=== PATIENT | female | born 1935 | race Caucasian/White ===

== ENCOUNTER → 2018-04-12 17:31 | Outpatient (CLI) | payer MEDICARE, OTHER, SELFPAY ==
--- NOTE | 2018-04-12 17:37 | DI.RAD.S_ITS ---
PROCEDURE: XR CHEST 2V INDICATIONS: Cough for 2 weeks TECHNIQUE: 2 views of the chest were acquired. COMPARISON: None. FINDINGS: Surgical changes and devices: None. Lungs and pleura: No pleural effusions or pneumothorax. Lungs are clear. Mediastinum: Mediastinal contours are normal. Heart size is normal. Bones and chest wall: No suspicious bony abnormalities. Soft tissues appear unremarkable. IMPRESSION: 1. No acute cardiopulmonary disease. Dictated by: Jalil Caicedo M.D. on 04/12/2018 at 17:59 Approved by: Jalil Caicedo M.D. on 04/12/2018 at 18:00
== END ==
PROVIDERS: Family Provider Family Medicine; PCP Family Medicine; Visit Provider Physician Assistant
DX: R05 Cough (principal)
CPT/HCPCS: 71046

== ENCOUNTER → 2018-11-10 07:53 | Outpatient (CLI) | payer MEDICARE, OTHER, SELFPAY ==
[2018-11-10 09:08] LABS: Hematocrit 41.2 % (36-46); Hemoglobin 13.5 g/dL (12.0-16.0); Mean Corpuscular HGB Conc 32.8 % (30-36); Mean Corpuscular Hemoglobin 29.5 PG (26-34); Mean Corpuscular Volume 89.9 fL (80-100); Platelet Count 280 X10^3/uL (150-400); Red Blood Cell Count 4.59 X10^6/uL (4.0-5.2); White Blood Cell Count 4.1 X10^3/uL (4.5-11.0)
[2018-11-10 09:25] LABS: Hemoglobin A1C% w Est Avg Glu 5.6 % (4.0-6.0)
[2018-11-10 09:35] LABS: Alanine Aminotransferase 26 IU/L (9-52); Albumin 4.2 g/dL (3.5-5.0); Albumin Globulin Ratio 1.5 (1.0-2.8); Alkaline Phosphatase 73 U/L (38-126); Aspartate Aminotransferase 22 IU/L (14-36); BUN Creatinine Ratio 17.5 (6-22); Bilirubin Total 0.3 mg/dL (0.2-1.3); Blood Urea Nitrogen 14 mg/dL (7-17); Calcium 9.4 mg/dL (8.4-10.2); Carbon Dioxide 27 mmol/L (22-32); Chloride 105 mmol/L (98-107); Cholesterol 283 mg/dL (140-199); Estimated Glomerular Filt Rate > 60.0 mL/min (>60); Globulin 2.8 g/dL (1.7-4.1); Glucose 96 mg/dL (80-110); HDL Cholesterol 61 mg/dL (40-60); HEMOLYSIS < 15 (0-50); LDL Cholesterol Calculated 193 mg/dL (<100); Potassium 4.3 mmol/L (3.4-5.1); Sodium 140 mmol/L (137-145); Triglycerides 143 mg/dL (35-150)
[2018-11-10 09:46] LABS: Vitamin D 25 Hydroxy (D3) 39.4 ng/mL (30.0-100.0)
[2018-11-10 10:34] LABS: Folate > 20.0 ng/mL (2.76-20.0); Vitamin B12 856 pg/mL (239-931)
== END ==
PROVIDERS: Visit Provider Nurse Practitioner Family
DX: E78.2 Mixed hyperlipidemia (principal); R53.82 Chronic fatigue, unspecified; E03.9 Hypothyroidism, unspecified; Z68.32 Body mass index [BMI] 32.0-32.9, adult
CPT/HCPCS: 36415; 80053; 80061; 82306; 82607; 82746; 83036; 84443; 85027

== ENCOUNTER → 2019-03-01 07:07 | Outpatient (CLI) | payer MEDICARE, OTHER, SELFPAY ==
[2019-03-01 08:30] LABS: Cholesterol 264 mg/dL (140-199); HDL Cholesterol 57 mg/dL (40-60); LDL Cholesterol Calculated 167 mg/dL (<100); Triglycerides 202 mg/dL (35-150)
== END ==
PROVIDERS: PCP Nurse Practitioner Family; Visit Provider Nurse Practitioner Family
DX: E78.2 Mixed hyperlipidemia (principal)
CPT/HCPCS: 36415; 80061

== ENCOUNTER → 2019-05-02 09:36 | Outpatient (CLI) | payer MEDICARE, OTHER, SELFPAY ==
--- NOTE | 2019-05-02 09:40 | DI.RAD.S_ITS ---
PROCEDURE: XR HAND LT MIN 3V INDICATIONS: PAIN IN THE THUMB JOINT TECHNIQUE: 3 views of the hand(s) acquired. COMPARISON: None. FINDINGS: Bones: No fractures or dislocations. Carpal bones are normally aligned. No suspicious bony lesions. Moderate first CMC and triscaphe joint osteoarthritis. Mild osteoarthritic degenerative changes noted in the first and fifth proximal and distal interphalangeal. Soft tissues: No suspicious soft tissue calcifications. IMPRESSION: 1. Osteoarthritis. 2. No fracture. No acute osseous lesion. If symptoms and/or clinical suspicion for pathology persists, further assessment with advanced imaging (e.g. CT, MRI or bone scan) may be helpful. Dictated by: Adriana Guzman MD, PhD on 05/02/2019 at 13:06 Approved by: Adriana Guzman MD, PhD on 05/02/2019 at 13:07
--- NOTE | 2019-05-02 09:40 | DI.RAD.S_ITS ---
PROCEDURE: XR KNEE LT 3V INDICATIONS: left knee with lump TECHNIQUE: 3 views of the knee were acquired. COMPARISON: None. FINDINGS: Bones: No fractures or dislocations. No suspicious bony lesions. Moderate medial compartment osteophytosis. Mild lateral compartment and patellofemoral compartment osteoarthritis. Soft tissues: No joint effusion. No suspicious soft tissue calcifications. Atherosclerotic calcifications noted. IMPRESSION: 1. Tricompartmental osteoarthritis. 2. No discrete soft tissue lesion identified that would correspond to clinically reported lump. Recommend CT or MRI for further evaluation if clinically indicated. Dictated by: Adriana Guzman MD, PhD on 05/02/2019 at 13:05 Approved by: Adriana Guzman MD, PhD on 05/02/2019 at 13:06
== END ==
PROVIDERS: PCP Nurse Practitioner Family; Visit Provider Nurse Practitioner Family
DX: M25.562 Pain in left knee (principal); M79.645 Pain in left finger(s); M17.12 Unilateral primary osteoarthritis, left knee; M18.12 Unilateral primary osteoarthritis of first carpometacarpal joint, left hand; M19.042 Primary osteoarthritis, left hand
CPT/HCPCS: 73130; 73562

== ENCOUNTER → 2019-09-25 18:08 | Outpatient (CLI) | payer MEDICARE, OTHER, SELFPAY ==
--- NOTE | 2019-09-25 18:11 | DI.MRI.S_ITS ---
PROCEDURE: MR KNEE LT WO CON INDICATIONS: UNILATERAL PRIMARY OSTEOARTHRITIS, LEFT KNEE TECHNIQUE: [facility] [employer] protocol was performed. Noncontrast sagittal PD fast spin echo and T2 fast spin echo with fat saturation, sagittal 3-D FLASH with fat saturation; coronal T1 spin echo and PD fast spin echo with fat saturation, and axial PD fast spin echo with fat saturation through the knee. COMPARISON: None. FINDINGS: Image quality: Excellent. Menisci: Complex macerated tear involving the medial meniscal body, with abnormal signal extending to the superior articular surface as well as the periphery. There is a ill-defined para meniscal cyst adjacent to the body and posterior horn (for example image 8 series 8). Exact measurements difficult due to irregular configuration. There is partial extrusion of the medial meniscus Lateral meniscus intact. Cruciate ligaments: Anterior cruciate ligament appears intact. Posterior cruciate ligament appears intact. Medial structures: There is medial bowing of the medial collateral ligament, with mild internal signal changes and no complete rupture. There is adjacent soft tissue edema. The appearance could reflect reactive changes to medial compartment pathology, versus low-grade sprain of the MCL. Pes anserinus tendons appear grossly unremarkable. Semimembranosus tendon appears intact. Lateral structures: The lateral collateral ligament demonstrates thickening and intrasubstance signal change in keeping with low grade sprain, statistically chronic, although technically age indeterminate. Biceps femoris tendon appears intact. Popliteus tendon grossly unremarkable. Iliotibial band appears intact. Anterior structures: Quadriceps tendon intact. Medial and lateral patellofemoral ligaments intact. There is mild patellar tendinopathy. Prepatellar and superficial infrapatellar subcutaneous edema/fluid. Bones and cartilage: No focal marrow contusion or discrete low signal fracture line. Within the medial compartment, near full-thickness diffuse femoral and tibial articular cartilage loss with subchondral marrow edema and cystic change. Within the lateral compartment, diffuse partial-thickness loss of the femoral and tibial articular cartilage with full-thickness fissuring involving the central tibial cartilage. Within the patellofemoral compartment, diffuse partial-thickness loss of the femoral trochlear and patellar articular cartilage Joint space: No definite pathologic or effusion. Gaines's cyst measuring 4-5 cm the cephalocaudad dimension. No specific evidence of intra-articular loose body. IMPRESSION: Macerated complex tear involving the medial meniscus with partial extrusion. Associated ill-defined para meniscal cyst adjacent to the body and posterior horn Severe degenerative joint disease, most pronounced in the medial compartment Mild patellar tendinopathy Gaines's cyst. Dictated by: Chandan Zaldivar M.D. on 09/26/2019 at 8:57 Approved by: Chandan Zaldivar M.D. on 09/26/2019 at 9:07
== END ==
PROVIDERS: PCP Nurse Practitioner Family; Referring Provider Orthopaedic Surgery; Visit Provider Orthopaedic Surgery
DX: M17.12 Unilateral primary osteoarthritis, left knee (principal); S83.231A Complex tear of medial meniscus, current injury, right knee, initial encounter; M71.21 Synovial cyst of popliteal space [Baker], right knee; M67.961 Unspecified disorder of synovium and tendon, right lower leg
CPT/HCPCS: 73721

== ENCOUNTER → 2019-11-07 08:05 | Outpatient (CLI) | payer MEDICARE, OTHER, SELFPAY ==
[2019-11-07 09:59] LABS: Cholesterol 264 mg/dL (140-199); HDL Cholesterol 58 mg/dL (40-60); LDL Cholesterol Calculated 179 mg/dL (<100); Triglycerides 134 mg/dL (35-150)
[2019-11-07 10:32] LABS: Thyroid Stimulating Hormone 2.72 uIU/mL (0.47-4.68)
== END ==
PROVIDERS: PCP Nurse Practitioner Family; Referring Provider Nurse Practitioner Family; Visit Provider Nurse Practitioner Family
DX: E78.2 Mixed hyperlipidemia (principal); E03.9 Hypothyroidism, unspecified
CPT/HCPCS: 36415; 80061; 84443

== ENCOUNTER → 2019-12-16 13:38 | Outpatient (CLI) | payer MEDICARE, OTHER, SELFPAY ==
--- NOTE | 2019-12-16 13:41 | DI.RAD.S_ITS ---
PROCEDURE: XR KNEE RT 3V INDICATIONS: right knee pain after injury TECHNIQUE: 3 views of the knee were acquired. COMPARISON: [facility], CR, XR KNEE LT 3V, 05/02/2019, 9:38. FINDINGS: Bones: No acute fractures or dislocations. There are tricompartmental degenerative changes of the right knee with joint space narrowing of the medial and lateral femorotibial compartments. No suspicious bony lesions. Soft tissues: No joint effusion. No suspicious soft tissue calcifications. IMPRESSION: Tricompartmental right knee osteoarthrosis. No acute osseous abnormalities. If there are persistent symptoms or clinical suspicion for pathology, then repeat radiographs or advanced imaging (CT, MRI or bone scan) should be considered for further evaluation. Dictated by: Lane Perez M.D. on 12/16/2019 at 15:37 Approved by: Lane Perez M.D. on 12/16/2019 at 15:38
== END ==
PROVIDERS: PCP Nurse Practitioner Family; Referring Provider Nurse Practitioner Family; Visit Provider Nurse Practitioner Family
DX: M25.561 Pain in right knee (principal); M17.11 Unilateral primary osteoarthritis, right knee; S89.91XA Unspecified injury of right lower leg, initial encounter; X58.XXXA Exposure to other specified factors, initial encounter
CPT/HCPCS: 73562

== ENCOUNTER → 2020-03-31 11:56 | Outpatient (CLI) | payer MEDICARE, OTHER, SELFPAY ==
[2020-03-31 13:42] LABS: Alanine Aminotransferase 22 IU/L (<35); Albumin Globulin Ratio 1.7 (1.0-2.8); Alkaline Phosphatase 85 U/L (38-126); Aspartate Aminotransferase 24 IU/L (14-36); BUN Creatinine Ratio 26.1 (6-22); Bilirubin Total 0.4 mg/dL (0.2-1.3); Blood Urea Nitrogen 18 mg/dL (7-17); Calcium 9.5 mg/dL (8.4-10.2); Carbon Dioxide 29 mmol/L (22-32); Chloride 104 mmol/L (98-107); Estimated Glomerular Filt Rate > 60.0 mL/min (>60); Globulin 2.4 g/dL (1.7-4.1); HEMOLYSIS < 15 (0-50); Potassium 4.4 mmol/L (3.4-5.1); Sodium 138 mmol/L (137-145); Total Protein 6.4 g/dL (6.3-8.2)
[2020-03-31 13:58] LABS: Glucose 92 mg/dL (80-110)
[2020-03-31 14:11] LABS: Thyroid Stimulating Hormone 1.06 uIU/mL (0.47-4.68)
== END ==
PROVIDERS: PCP Nurse Practitioner Family; Referring Provider Nurse Practitioner Family; Visit Provider Nurse Practitioner Family
DX: E03.9 Hypothyroidism, unspecified (principal); Z79.899 Other long term (current) drug therapy
CPT/HCPCS: 36415; 80053; 84443

== ENCOUNTER → 2020-04-20 09:10 | Outpatient (CLI) | payer MEDICARE, OTHER, SELFPAY ==
--- NOTE | 2020-04-20 09:24 | DI.ECHO.S_ITS ---
Echocardiogram Report + + :Name: CHAPIN GIBBS Study Date: 04/20/2020 Height: 64 in : :[employer] Weight: 190 lb : : Gender: Female BSA: 1.9 m2 : :: 1935 Age: 85 yrs BP: 132/93 mmHg: :Reason For Study: ABNORMAL EKG : : Performed By: Yanni Rivera : :Referring: FILOMENA SMITH : + + Interpretation Summary Normal left ventricle size with ejection fraction 60-65%. Mild mitral annular calcification. The aortic valve is mildly calcified. Mild aortic regurgitation. Procedure: A two-dimensional transthoracic echocardiogram with color flow and Doppler was performed. The study quality was technically adequate. There is no prior echocardiogram noted for this patient. The patient was in sinus bradycardia with heart rates between 44-58 bpm during the exam. Left Ventricle: The left ventricle is normal in size and wall thickness. The ejection fraction is estimated to be 60-65%. There are no focal wall motion abnormalities. Diastolic parameters suggest probable normal left ventricular diastolic function and normal filling pressures. Right Ventricle: The right ventricle is normal in size and function. Atria: Both atria are normal in size. There is no Doppler evidence for an interatrial shunt. Mitral Valve: The mitral valve is normal in structure and function. There is mild mitral annular calcification. There is trace mitral regurgitation. Aortic Valve: The aortic valve is trileaflet. The aortic valve is mildly calcified. There is no aortic valve stenosis. There is mild aortic regurgitation. Tricuspid Valve: The tricuspid valve is normal in structure and function. There is trace tricuspid regurgitation. Pulmonic Valve: The pulmonic valve leaflets are thin and pliable; valve motion is normal. There is mild to moderate pulmonic regurgitation. Great Vessels: The aortic root is normal size. The ascending aorta could not be visualized. The IVC is of normal diameter and collapses greater than 50% with a sniff. This suggests a low right atrial pressure of 3 mm Hg. Pericardium/ Pleura There is no pericardial effusion. There is no pleural effusion. MMode/2D Measurements & Calculations LVIDd: 3.9 cm LVOT diam: 2.3 cm LVIDs: 2.5 cm Ao root diam: 3.7 cm FS: 34.8 % IVSd: 0.89 cm LVPWd: 0.98 cm LV le. diameter/BSA (cm/m^2): 2.0 LV sys. diameter/BSA (cm/m^2): 1.3 LA A2 area: 16.9 cm2 RA long axis: 5.0 cm LA A4 area: 15.2 cm2 RA area: 16.3 cm2 LA length (vol): 4.8 cm RA vol: 45.5 ml LA vol: 45.4 ml RA : 23.8 ml/m2 LA vol index: 23.7 ml/m2 IVC diam: 1.3 cm RVD1 (basal): 3.0 cm TAPSE: 2.3 cm Doppler Measurements & Calculations Ao V2 max: 159.3 cm/sec LVOT Max Meek: 123.8 cm/sec Ao V2 mean: 103.8 cm/sec LV V1 max P.1 mmHg Ao max P.1 mmHg LV V1 VTI: 27.9 cm Ao mean P.1 mmHg HIEU(I,D): 3.2 cm2 Ao V2 VTI: 36.0 cm HIEU(V,D): 3.3 cm2 sev ratio: 0.78 HIEU indexed to BSA (cm^2/m^2): 1.7 MV E max meek: 64.7 cm/sec TR max meek: 214.9 cm/sec MV A max meek: 84.3 cm/sec TR max P.5 mmHg MV E/A: 0.77 PA V2 max: 84.3 cm/sec Med Peak E' Meek: 6.6 cm/sec PA V2 mean: 54.8 cm/sec E/E' med: 9.7 PA mean P.4 mmHg Lat Peak E' Meek: 7.5 cm/sec PA pr(Accel): 1.9 mmHg E/E' lat: 8.7 E/e' average: 9.2 MV dec time: 0.24 sec SV(LVOT): 116.8 ml Electronically signed by: Shelly Wallace on Reading Physician:04/20/2020 02:57 PM
== END ==
PROVIDERS: PCP Nurse Practitioner Family; Referring Provider Nurse Practitioner Family; Visit Provider Nurse Practitioner Family
DX: I35.1 Nonrheumatic aortic (valve) insufficiency (principal); R94.31 Abnormal electrocardiogram [ECG] [EKG]
CPT/HCPCS: 93306

== ENCOUNTER 2020-06-19 10:09 | Emergency (ER) | payer MEDICARE, OTHER, SELFPAY ==
[2020-06-19] VITALS (9 sets, daily range): BP systolic 158–176; BP diastolic 73–79; PULSE 43–60; RESP 14–25; TEMP 36.6; O2SAT 94–97; BMI 32.5
--- NOTE | 2020-06-19 11:02 | ED.NEUROSD ---
HPI - Neuro Symptoms/Deficit General Chief Complaint: Neuro Symptoms/Deficit Stated Complaint: disoriented/stomach issues Time Seen by Provider: 06/19/20 10:41 Source: patient Mode of arrival: Ambulatory Limitations: no limitations History of Present Illness HPI Narrative: Patient is an 85-year-old female who presents with difficulty concentrating since yesterday morning. She said that she has had this episodes in the past that usually last 3 days however when she has gone in to be evaluated they can not find anything wrong. She says she has a concentrate really hard in doing anything such as walking so that she does not fall down. She says she does not feel off balance dizzy or lightheaded. She does have some nausea she thinks it her difficulty concentrating may be associated with her abdomen. She had no fever chills or shortness of breath. No history of stroke Onset (ago): day(s) On Anticoagulants: No Related Data Home Medications Medication Instructions Recorded Confirmed MULTIVITAMIN (#POLYVITAMIN 0.5 ML) PO QDAY #0 05/21/12 03/31/20 [vitamin d] PO QDAY #0 05/21/12 03/31/20 aspirin 81 mg tablet,delayed 81 mg PO DAILY 04/12/18 03/31/20 release Stool Softener PO DAILY 11/09/18 03/31/20 ibuprofen 200 mg tablet 200 mg PO BID PRN tab 05/02/19 03/31/20 magnesium 250 mg tablet 500 mg PO DAILY tab 05/02/19 03/31/20 Al hyd-Mg tr-alg ac-sod bicarb 80 tab PO 03/31/20 03/31/20 mg-14.2 mg chewable tablet ascorbic yxiq-dhbdxjqj-php 1,000 mg PO 03/31/20 03/31/20 md-jrjprjjnllhg-flyrhuaa powder effervescent pack aspirin 500 mg-sod bicarb 1,985 each PO 03/31/20 03/31/20 mg-citric acid 1,000 mg efferv tablet Previous Rx's Medication Instructions Recorded levothyroxine 75 mcg tablet 75 mcg PO QDAY #90 tab 11/08/19 colestipol 1 gram tablet 1 gram PO DAILY #90 tab 03/31/20 pantoprazole 40 mg tablet,delayed 40 mg PO DAILY #14 tab 03/31/20 release Allergies Allergy/AdvReac Type Severity Reaction Status Date / Time Wfdsriq-Dwi-Fna Reductase AdvReac Severe Leg cramps Verified 06/19/20 10:25 Inhibitor [[id number]-[id number]-JZL REDUCTASE INHIBITOR] PNEUMONIA VACCINE Allergy Intermediate SWELLING Uncoded 03/31/20 11:05 AND REDNESS AND INJECTION SITE Review of Systems Review of Systems ROS Unobtainable: All systems reviewed & are unremarkable except as noted in HPI and below Constitutional Constitutional: Denies chills, Denies fever(s), Denies lethargy and Denies weakness Cardiovascular Cardiovascular: Denies chest pain, Denies irregular heart rhythm, Denies lightheadedness, Denies palpitations, Denies dyspnea, Denies dyspnea on exertion and Denies orthopnea Respiratory Respiratory: Denies cough, Denies dyspnea, Denies dyspnea on exertion and Denies wheezing Gastrointestinal Gastrointestinal: Reports abdominal pain, Denies change in bowel habits, Denies diarrhea, Reports nausea and Denies vomiting Musculoskeletal Musculoskeletal: Denies back pain, Denies myalgias and Denies muscle cramps Integumentary/Breasts Skin/Breast: Denies pruritus, Denies erythema, Denies rash and Denies wounds Neurologic Neurologic: Denies abnormal speech and Denies weakness Endocrine Endocrine: Denies palpitations Allergic/Immunologic Allergic/Immunologic: Denies wheezing Patient History Medical History Abnormal EKG (Acute) GERD (gastroesophageal reflux disease) (Resolved ~2011) Hip pain, right (Resolved Unknown) 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 Father Stroke Mother Heart attack Sister Stroke Sister No problems noted. Sister No problems noted. Sister No problems noted. Family/Other Cancer Social History Smoking Status: Never smoker second hand exposure: No alcohol intake: current (Wine or vodka. 1 about 4 times a week) substance use type: does not use Smoking Status: Never smoker alcohol intake frequency: 0-2 drinks per day Substance Use Type: does not use Exam Initial Vital Signs Initial Vital Signs: Vital Signs Temperature 97.9 F 06/19/20 10:25 Pulse Rate 52 L 06/19/20 10:25 Respiratory Rate 14 06/19/20 10:25 Blood Pressure 158/74 H 06/19/20 10:25 Pulse Oximetry 97 06/19/20 10:25 GENERAL: Alert pleasant well-appearing elderly female and in no acute distress. HEENT: Head atraumatic,EOMI, pupils reactive, face symmetric, moist mucous membranes CARDIOVASCULAR: Regular rate and rhythm without murmurs, rubs or gallops. RESPIRATORY: Breath sounds equal bilaterally, no wheezes rales or rhonchi. ABDOMEN: Soft, nontender. Normoactive bowel sounds all 4 quadrants. No guarding or rebound. EXTREMITIES: Normal range of motion, no clubbing or edema. Neurovascularly intact NEUROLOGICAL: Alert and oriented x4.Normal gait and speech. Cranial nerves II through XII grossly intact. Good zeiiev-cx-obdk, good jixd-js-uiso, strength equal bilaterally, no dysarthria or aphasia, sensation in tact to soft touch bilaterally, no visual changes, no facial droop SKIN: Warm, dry, no laceration, no petechiae, no rashes or lesions. Scores NIH Stroke Scale Level of Conciousness: Alert, keenly responsive Ask month/age: Answers both questions correctly. Open/close eyes, close hand: Performs both tasks correctly Best gaze horizontal: Normal Visual pacheco: No visual loss Facial palsy: Normal symetrical movement Left arm drift: No drift for full 10 sec Right arm drift: No drift for full 10 sec Left leg drift: No drift for full 5 sec Right leg drift: No drift for full 5 sec Limb ataxia: Absent Sensory on face/arms/legs: Normal, no sensory loss Best language: No aphasia, normal Dysarthria: Normal Extinction or inattention: No abnormality Total NIH Stroke scale score: 0 Course Orders Ordered: ED Orders 06/19/20 11:28 CT head/brain wo con Stat 10/30/20 11:45 Complete Blood Count AUTO DIFF Stat Comprehensive Metabolic Panel Stat Troponin & CK Cardiac Panel Stat Discontinued Medications Sodium Chloride (Normal Saline 0.9%) 1,000 mls @ 150 mls/hr IV CONT JOSETTE Last Admin: 06/19/20 11:50 Dose: 150 mls/hr Documented by: CARTER Vital Signs Vital signs: Vital Signs - 8 hr 06/19/20 10:25 06/19/20 10:44 06/19/20 11:00 Temperature 97.9 F Pulse Rate 52 L 46 L 49 L Respiratory Rate 14 20 17 Blood Pressure 158/74 H Pulse Oximetry 97 95 94 06/19/20 11:29 06/19/20 11:30 06/19/20 12:00 Temperature Pulse Rate 47 L 45 L 45 L Respiratory Rate 14 17 25 H Blood Pressure 176/79 H 167/77 H 170/74 H Pulse Oximetry 96 97 95 06/19/20 12:30 06/19/20 13:06 06/19/20 13:30 Temperature Pulse Rate 43 L 60 50 L Respiratory Rate 20 17 25 H Blood Pressure 159/73 H Pulse Oximetry 95 97 MDM - Neuro Symptoms/Deficit Lab Data Attestation: I reviewed the patient's lab results. Result diagrams: 06/19/20 11:45 06/19/20 11:45 Labs: Lab Results 06/19/20 06/19/20 Range/Units 11:45 11:45 WBC 6.0 (4.5-11.0) X10^3/uL RBC 4.43 (4.0-5.2) X10^6/uL Hgb 13.2 (12.0-16.0) g/dL Hct 39.5 (36-46) % MCV 89.1 (80-100) fL MCH 29.9 (26-34) PG MCHC 33.5 (30-36) % RDW 14.3 (11.6-14.8) % Plt Count 265 (150-400) X10^3/uL Neut % (Auto) 72.0 (50-75) % Lymph % (Auto) 19.8 L (25-40) % [place] % (Auto) 5.9 (3-14) % Eos % (Auto) 1.7 L (2-4) % Baso % (Auto) 0.6 (0-2) % Neut # (Auto) 4300 (5059-6382) /uL Lymph # (Auto) 1200 (1528-4454) /uL [place] # (Auto) 400 (0-900) /uL Eos # (Auto) 100 (0-450) /uL Baso # (Auto) 0 (0-100) /uL Sodium 139 (137-145) mmol/L Potassium 4.0 (3.4-5.1) mmol/L Chloride 107 (98-107) mmol/L Carbon Dioxide 28 (22-32) mmol/L BUN 16 (7-17) mg/dL Creatinine 0.66 (0.52-1.04) mg/dL Estimated GFR > 60.0 (>60) mL/min BUN/Creatinine Ratio 24.2 H (6-22) Glucose 106 (80-110) mg/dL Calcium 9.3 (8.4-10.2) mg/dL Total Bilirubin 0.5 (0.2-1.3) mg/dL AST 23 (14-36) IU/L ALT 19 (<35) IU/L Alkaline Phosphatase 72 (38-126) U/L Total Creatine Kinase 39 (30-135) U/L CK-MB (CK-2) TNP CK-MB (CK-2) Rel Index TNP Troponin I < 0.012 (0.01-0.034) ng/mL Total Protein 6.9 (6.3-8.2) g/dL Albumin 4.0 (3.5-5.0) g/dL Globulin 2.9 (1.7-4.1) g/dL Albumin/Globulin Ratio 1.4 (1.0-2.8) Urine Dip Bedside Urine Glucose Negative Bedside Urine Bilirubin - Negative Bedside Urine Ketone - Negative Urine Specific Comfort 1.020 Bedside Urine Occult Blood - Negative Bedside Urine pH 6.5 Bedside Urine Protein - Negative Bedside Urine Urobilinogen - Negative Bedside Urine Nitrite - Negative Bedside Urine Leukocytes - Negative Esterase Imaging Data CT scan - head: Radiologist's Impression: PROCEDURE: CT HEAD/BRAIN WO CON INDICATIONS: difficulty concentrating TECHNIQUE: Noncontrast 4.5 mm thick angled axial sections acquired from the foramen magnum to the vertex, with coronal and sagittal reformats. For radiation dose reduction, the following was used: automated exposure control, adjustment of mA and/or kV according to patient size. COMPARISON: None. FINDINGS: Image quality: Excellent. CSF spaces: Basal cisterns are patent. No extra-axial fluid collections. The ventricles are symmetric in size and shape. Brain: No intracranial bleeds or masses. There is cerebral volume loss for age, with resultant ventricular and sulcal prominence. There are periventricular and deep white matter chronic small vessel ischemic changes. There is intracranial internal carotid artery atherosclerosis. Skull and face: Calvarium and visualized facial bones appear intact, without suspicious lesions. Sinuses: Visualized sinuses and mastoids are clear. IMPRESSION: No acute intracranial disease process. Dictated by: Adriana Guzman MD, PhD on 06/19/2020 at 11:31 ECG Data Attestation: I personally reviewed and interpreted this ECG as follows: Prior ECG tracings: available for review Interpretation: Normal sinus rhythm rate 47 p.r. interval 184 QRS [address] changes MDM Narrative Medical decision making narrative: Patient has no focal deficits no sign of infection. At this time I see no indication for admission criteria. Symptoms have been ongoing for more than 24 hours. Recommend she go home and rest and return if needed. Discharge Plan Departure Patient Disposition: Home Clinical Impression: Weakness Discharge Date/Time: 06/19/20 13:41 Instructions: DI for Muscle Weakness Activity Restrictions/Additional Instructions: *You have been diagnosed with at this time no real cause of symptoms is identified *What to do: Recommend resting and monitoring symptoms *Continue to take medications as directed *Follow up with your primary care provider in 2-3 days *Return to ER if you should have increased weakness, difficulty speaking, visual changes or any new, worsening or concerning symptoms Prescriptions: No Action aspirin [Adult Low Dose Aspirin] 81 mg tablet,delayed release (DR/EC) 81 mg PO DAILY RF: 0 Stool Softener PO DAILY RF: 0 MULTIVITAMIN (#POLYVITAMIN 0.5 ML) PO QDAY Qty: 0 RF: 0 [vitamin d] PO QDAY Qty: 0 RF: 0 levothyroxine [Synthroid] 75 mcg tablet 75 mcg PO QDAY Qty: 90 RF: 3 magnesium 250 mg tablet 500 mg PO DAILY RF: 0 ibuprofen 200 mg tablet 200 mg PO BID PRNRF: 0 Emergen-C 1,000 mg powder effervescent in packet PO RF: 0 Millie-Ford Extra Strength 500-1,985-1,000 mg tablet, effervescent PO RF: 0 Gaviscon 80-14.2 mg tablet,chewable PO RF: 0 colestipol [Colestid] 1 gram tablet 1 gram PO DAILY Qty: 90 RF: 1 pantoprazole [Protonix] 40 mg tablet,delayed release (DR/EC) 40 mg PO DAILY Qty: 14 RF: 0 Referrals: Al Johnson ARNP [Primary Care Provider] -
--- NOTE | 2020-06-19 11:28 | DI.CT.S_ITS ---
PROCEDURE: CT HEAD/BRAIN WO CON INDICATIONS: difficulty concentrating TECHNIQUE: Noncontrast 4.5 mm thick angled axial sections acquired from the foramen magnum to the vertex, with coronal and sagittal reformats. For radiation dose reduction, the following was used: automated exposure control, adjustment of mA and/or kV according to patient size. COMPARISON: None. FINDINGS: Image quality: Excellent. CSF spaces: Basal cisterns are patent. No extra-axial fluid collections. The ventricles are symmetric in size and shape. Brain: No intracranial bleeds or masses. There is cerebral volume loss for age, with resultant ventricular and sulcal prominence. There are periventricular and deep white matter chronic small vessel ischemic changes. There is intracranial internal carotid artery atherosclerosis. Skull and face: Calvarium and visualized facial bones appear intact, without suspicious lesions. Sinuses: Visualized sinuses and mastoids are clear. IMPRESSION: No acute intracranial disease process. Dictated by: Adriana Guzman MD, PhD on 06/19/2020 at 11:31 Approved by: Adriana Guzman MD, PhD on 06/19/2020 at 11:33
[2020-06-19] MEDS: SODIUM CHLORIDE 0.9% 1,000 ML 150 ML IV (11:50)
[2020-06-19 11:51] LABS: Add Manual Diff / Slide Review NO; Basophils Absolute Auto 0 /uL (0-100); Basophils Percent Auto 0.6 % (0-2); Eosinophils Absolute Auto 100 /uL (0-450); Eosinophils Percent Auto 1.7 % (2-4); Hematocrit 39.5 % (36-46); Hemoglobin 13.2 g/dL (12.0-16.0); Lymphocytes Absolute Auto 1200 /uL (1100-4500); Lymphocytes Percent Auto 19.8 % (25-40); Mean Corpuscular HGB Conc 33.5 % (30-36); Mean Corpuscular Hemoglobin 29.9 PG (26-34); Mean Corpuscular Volume 89.1 fL (80-100); Monocytes Absolute Auto 400 /uL (0-900); Monocytes Percent Auto 5.9 % (3-14); Neutrophils Absolute Auto 4300 /uL (1500-7000); Platelet Count 265 X10^3/uL (150-400); Red Blood Cell Count 4.43 X10^6/uL (4.0-5.2); Red Cell Distribution Width 14.3 % (11.6-14.8)
[2020-06-19 12:04] LABS: Alanine Aminotransferase 19 IU/L (<35); Albumin Globulin Ratio 1.4 (1.0-2.8); Alkaline Phosphatase 72 U/L (38-126); Aspartate Aminotransferase 23 IU/L (14-36); BUN Creatinine Ratio 24.2 (6-22); Bilirubin Total 0.5 mg/dL (0.2-1.3); Blood Urea Nitrogen 16 mg/dL (7-17); Calcium 9.3 mg/dL (8.4-10.2); Carbon Dioxide 28 mmol/L (22-32); Chloride 107 mmol/L (98-107); Creatine Kinase 39 U/L (30-135); Estimated Glomerular Filt Rate > 60.0 mL/min (>60); Globulin 2.9 g/dL (1.7-4.1); Glucose 106 mg/dL (80-110); HEMOLYSIS < 15 (0-50); Sodium 139 mmol/L (137-145); Total Protein 6.9 g/dL (6.3-8.2)
[2020-06-19 12:14] LABS: Troponin I < 0.012 ng/mL (0.01-0.034)
--- NOTE | 2020-07-19 13:05 | PC.NURSE ---
LATE ENTRY: NS INFUSING AT TIME OF DC WITH STOP TIME OF 1340
== END 2020-06-19 13:41 | disposition home or self-care (01) ==
PROVIDERS: Emergency Provider Emergency Medicine; PCP Nurse Practitioner Family
DX: R53.1 Weakness (principal); R41.0 Disorientation, unspecified; R10.9 Unspecified abdominal pain; R11.0 Nausea
CPT/HCPCS: 36415; 70450; 80053; 81003; 82550; 84484; 85025; 93005; 93010; 96360; 96361; 99284

== ENCOUNTER → 2020-07-14 12:53 | Outpatient (CLI) | payer MEDICARE, OTHER, SELFPAY ==
[2020-07-14 13:07] LABS: Bacteria Urine None Seen; RBC Urine None Seen (0-5/HPF); WBC Urine None Seen (0-5/HPF)
[2020-07-14 13:30] LABS: Appearance Urine UA CLEAR; Bilirubin Urine UA NEGATIVE (NEGATIVE); Color Urine UA YELLOW; Glucose Urine UA NEGATIVE (Negative); Ketones Urine UA NEGATIVE (NEGATIVE); Leukocyte Esterase Urine UA NEGATIVE (NEGATIVE); Nitrite Urine UA NEGATIVE (Negative); Occult Blood Urine UA NEGATIVE (Negative); Protein Urine UA NEGATIVE (Negative); Urobilinogen Urine UA 0.2 E.U./dL (0.2)
[2020-07-14 13:36] LABS: Add Manual Diff / Slide Review NO; Basophils Absolute Auto 100 /uL (0-100); Basophils Percent Auto 0.7 % (0-2); Eosinophils Absolute Auto 200 /uL (0-450); Eosinophils Percent Auto 1.9 % (2-4); Hematocrit 39.6 % (36-46); Hemoglobin 13.1 g/dL (12.0-16.0); Lymphocytes Absolute Auto 1500 /uL (1100-4500); Lymphocytes Percent Auto 19.5 % (25-40); Mean Corpuscular HGB Conc 33.1 % (30-36); Mean Corpuscular Hemoglobin 29.6 PG (26-34); Mean Corpuscular Volume 89.4 fL (80-100); Monocytes Absolute Auto 600 /uL (0-900); Monocytes Percent Auto 7.3 % (3-14); Neutrophils Absolute Auto 5600 /uL (1500-7000); Neutrophils Percent Auto 70.6 % (50-75); Platelet Count 288 X10^3/uL (150-400); Red Blood Cell Count 4.43 X10^6/uL (4.0-5.2); White Blood Cell Count 7.9 X10^3/uL (4.5-11.0)
[2020-07-14 13:47] LABS: BUN Creatinine Ratio 26.5 (6-22); Blood Urea Nitrogen 18 mg/dL (7-17); Calcium 9.4 mg/dL (8.4-10.2); Carbon Dioxide 29 mmol/L (22-32); Chloride 105 mmol/L (98-107); Estimated Glomerular Filt Rate > 60.0 mL/min (>60); Glucose 100 mg/dL (80-110); HEMOLYSIS < 15 (0-50); Potassium 4.3 mmol/L (3.4-5.1); Sodium 138 mmol/L (137-145)
[2020-07-14 13:54] LABS: Culture Indicated Urine Cult Not Indicated; Urine Comments Microscopic Normal
== END ==
PROVIDERS: PCP Nurse Practitioner Family; Referring Provider Orthopaedic Surgery; Visit Provider Orthopaedic Surgery
DX: Z01.818 Encounter for other preprocedural examination (principal); R73.9 Hyperglycemia, unspecified; N39.0 Urinary tract infection, site not specified; Z01.812 Encounter for preprocedural laboratory examination
CPT/HCPCS: 36415; 80048; 81001; 83036; 85025; 93005; 93010

== ENCOUNTER → 2020-10-30 16:53 | Outpatient (CLI) | payer MEDICARE, OTHER, SELFPAY ==
[2020-10-30] MEDS: COVID-19 VACC, Ad26(JANSSEN)/PF 0.5 ML IM (17:09)
== END ==
PROVIDERS: PCP Nurse Practitioner Family; Visit Provider Internal Medicine
DX: Z23 Encounter for immunization (principal)
CPT/HCPCS: 0031A; 91303

== ENCOUNTER → 2020-11-27 07:43 | Outpatient (CLI) | payer MEDICARE, OTHER, SELFPAY ==
[2020-11-27 08:23] LABS: Alanine Aminotransferase 20 IU/L (<35); Albumin 4.3 g/dL (3.5-5.0); Albumin Globulin Ratio 1.5 (1.0-2.8); Alkaline Phosphatase 87 U/L (38-126); Aspartate Aminotransferase 27 IU/L (14-36); BUN Creatinine Ratio 24.7 (6-22); Bilirubin Total 0.3 mg/dL (0.2-1.3); Blood Urea Nitrogen 20 mg/dL (7-17); Calcium 9.7 mg/dL (8.4-10.2); Carbon Dioxide 27 mmol/L (22-32); Chloride 106 mmol/L (98-107); Estimated Glomerular Filt Rate > 60.0 mL/min (>60); Globulin 2.8 g/dL (1.7-4.1); Glucose 103 mg/dL (80-110); HEMOLYSIS < 15 (0-50); Potassium 4.3 mmol/L (3.4-5.1); Sodium 138 mmol/L (137-145); Total Protein 7.1 g/dL (6.3-8.2)
[2020-11-27 08:36] LABS: Free T4, Direct Thyroxine 0.99 ng/dL (0.78-2.19)
[2020-11-27 08:50] LABS: Thyroid Stimulating Hormone 2.89 uIU/mL (0.47-4.68)
== END ==
PROVIDERS: PCP Nurse Practitioner Family; Referring Provider Nurse Practitioner Family; Visit Provider Nurse Practitioner Family
DX: E03.9 Hypothyroidism, unspecified (principal)
CPT/HCPCS: 36415; 80053; 84439; 84443

== ENCOUNTER → 2021-01-04 08:35 | Outpatient (CLI) | payer MEDICARE, OTHER, SELFPAY ==
[2021-01-04 10:02] LABS: Cholesterol 280 mg/dL (140-199); HDL Cholesterol 64 mg/dL (40-60); LDL Cholesterol Calculated 181 mg/dL (<100); Triglycerides 175 mg/dL (35-150)
== END ==
PROVIDERS: PCP Nurse Practitioner Family; Referring Provider Nurse Practitioner Family; Visit Provider Nurse Practitioner Family
DX: E78.2 Mixed hyperlipidemia (principal)
CPT/HCPCS: 36415; 80061

== ENCOUNTER 2021-01-25 13:56 | Outpatient (RCR) | payer MEDICARE, OTHER, SELFPAY ==
--- NOTE | 2021-01-25 16:26 | PT.OIE ---
Current Diagnoses Stiffness of left hip, not elsewhere classified (01/25/21) Muscle weakness (generalized) (01/25/21) Stress incontinence (female) (male) (01/25/21) Mixed incontinence (01/25/21) Past Medical History (Last Updated 07/09/20 @ 17:29 by MARILY Cano) Abnormal EKG Constipation GERD (gastroesophageal reflux disease) (~2011) Hemorrhoids Hip pain, right (Unknown) Hx of malignant neoplasm of parotid gland (Unknown) Hyperlipemia (Unknown) Hypothyroidism (Unknown) Left medial knee pain (11/2018) Osteoarthritis (Unknown) Stress incontinence Vertigo (Unknown) Past Surgical History (Last Reviewed 06/19/20 @ 11:04 by Loly Srinivasan DO) History of salpingoophorectomy (Unknown) Hx of appendectomy (Unknown) Hx of cholecystectomy (Unknown) Hx of hysterectomy (Unknown) 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) Visit Care Team Role Provider Type MARILY Cano Attending Provider Advanced Auction Assistant Primary Care Provider Referring Provider Specialty: [facility] Address: [address] [place] [address] Email: [email or web address] Physical Therapy Initial Evaluation PT-OP-A Visit Information Start: 01/25/21 12:43 Freq: Status: Active Protocol: Document 01/25/21 14:19 LRN (Rec: 01/25/21 15:29 LRN [id number]) Out-Patient Physical Therapy Visit Information Visit Information Visit Type Initial Evaluation Visit Start Time 14:19 Visit Stop Time 15:21 Total Visit Minutes 62 Visit Number 1 Evaluation Information Evaluation Date 01/25/21 Precautions Precautions Partial L knee replacement 2019. R hip replacement 6 yrs ago. Hypothyroid, uncontrolled high blood pressure, trying to be managed by diet. PT-OP-B Current Condition Start: 01/25/21 12:43 Freq: Status: Active Protocol: Document 01/25/21 14:19 LRN (Rec: 01/25/21 15:29 LRN [id number]) Current Condition History of Current Condition Onset Date 14 yrs ago, worsened 5 yrs ago . Current Complaints Urinary leakage with urge, and frequency. History of Current Condition Urinary leakage, wears pads all the time. Changes pads 3x /day, yesterday, normal changes 2/24 hrs. Urinates every 15' in the morning. Has hemorrhoids; therefore uses carefree long heavy duty pads. Prior Treatments and Tests None Developmental History Developmental History Uterus, tubes & ovaries removed at age 39. Treatment Goals Patient/Caregiver Goals Pt goals is to not have to urinate every 20 minutes when walking for exercise. Prior Functional Status Baseline Function- ADL's Independent Baseline Function- Mobility Independent Baseline Function- Gait Occasionally uses walking stick with rough terrain, walks by self. Baseline Function- Recreation/Hobbies Swims 3x/week and walk on days not in the pool. Baseline Function- Other Urinate every 30 minutes. Current Functional Impairments (Reported) Functional Limitations- ADL's Less urinary control. Not able to stop leakage, and increased frequency of urination. Functional Limitations- Mobility/Gait Urinates ~ every 20' with walks. Personal Factors Other Personal Factors That May Effect Lives alone, daughter in [employer] [place]. History of constipation that she is working on changing, uncontrolled HBP. PT-OP-C Subjective Start: 01/25/21 12:43 Freq: Status: Active Protocol: Document 01/25/21 14:19 LRN (Rec: 01/25/21 15:29 LRN [id number]) Patient Questionnaires Pelvic Pain and Urgency/Frequency Patient Symptom Scale Pelvic Pain Score 12 PT-OP-I Pelvic Floor Start: 01/25/21 12:43 Freq: Status: Active Protocol: Document 01/25/21 14:19 LRN (Rec: 01/25/21 15:29 LRN [id number]) Pelvic Floor Assessment Urine Other Urinary Symptoms Increased frequency Leakage Size Small Leakage Cause Urge Leaks Per Day 2-3 Voiding Frequency every 20' in AM, in afternoon every 45-60' Nocturia 3-7 Pads Used In 24 Hours 2 Bowel Bowel Symptoms Constipation Other Bowel Symptoms Used to have constipation Bowel Movement Frequency 1/day [place] Stool Chart Comments [place] Stools between 3-4 Pelvic Clock Pelvic Clock 12-3 Tightness Pelvic Clock 3-6 Tightness Pelvic Clock 6-9 Tightness Pelvic Clock 9-12 Tightness Pelvic Clock Other Tightness of vaginal opening. Pt with very small vaginal opening. Prolapse Rectocele Grade 1 Prolapse Comments Palpable bulging of rectum into vaginal canal in supine. Perineal Descent Resting Present Bearing Present Contraction Ability Voluntary Contraction Moderate Voluntary Relaxation Weak Manual Muscle Testing Left 3 Manual Muscle Testing Right 3 Manual Muscle Testing Anterior 1 Manual Muscle Testing Posterior 3 Muscle Endurance (Seconds) 2 Number of Quick Contractions In 10 10 Seconds PT-OP-J Posture/Palpation/Skin Start: 01/25/21 12:43 Freq: Status: Active Protocol: Document 01/25/21 14:19 LRN (Rec: 01/25/21 15:29 LRN [id number]) Posture Evaluation Position Standing Head/C-Spine Posture Forward Head L-Spine Posture Increased Lordosis Shoulder Posture (R) Elevated Scapula Posture (R) Elevated Pelvis Posture Anteriorly Tilted,(L) PSIS Posterior Weight Distribution Balanced Hip Posture (L) Abducted,(R) Abducted Foot Arch (L) No Arch,(R) No Arch Comments Posture Comments Dowagers hump, L shoulder/ scpaular is low, head tilt right, R PSIS is forward, increased lordosis & anterior tilt of pelvis. Wide stance PT-OP-K Range of Motion Start: 01/25/21 12:43 Freq: Status: Active Protocol: Document 01/25/21 14:19 LRN (Rec: 01/25/21 15:29 LRN [id number]) Lumbar Spine Range of Motion Lumbar Spine Active Degrees Testing Position Standing Flexion 105 Extension 15 Rotation Left 20 Rotation Right 20 Lateral Flexion Left 15 Lateral Flexion Right 15 Comments 105/80 15/5 Hip Goniometric Range of Motion Hip Right Passive Hip ROM WFL No Testing Position Supine Flexion w/Knee Flexed 90 Straight Leg Raise 95 Internal Rotation 30 External Rotation 50 Left Passive Hip ROM WFL Yes Testing Position Supine Flexion w/Knee Flexed 105 Straight Leg Raise 105 Internal Rotation 10 External Rotation 50 PT-OP-M Strength Start: 01/25/21 12:43 Freq: Status: Active Protocol: Document 01/25/21 14:19 LRN (Rec: 01/25/21 15:29 LRN [id number]) Trunk Strength Trunk Manual Muscle Testing Core Stabilization Decreased core stability with R hip resisted flexion and hip AB Hip Strength Hip Manual Muscle Testing Right Flexion (L2) 5 Normal Extension (S1) 5 Normal Abduction 5 Normal Adduction 5 Normal External Rotation 3 Fair Internal Rotation 5 Normal Left Flexion (L2) 5 Normal Extension (S1) 5 Normal Abduction 5 Normal Adduction 5 Normal External Rotation 4 Good Internal Rotation 5 Normal Comments Decreased lift for extension PT-OP-Q Treatments Start: 01/25/21 12:43 Freq: Status: Active Protocol: Document 01/25/21 14:19 LRN (Rec: 01/25/21 15:29 LRN [id number]) Therapeutic Exercises Sitting Exercises Deep Breathing Sitting Exercise Name Deep Breathing Reps/Minutes 2' Self-Care/Home Management Treatment Education Other Education Discussed carefully proceeding of evaluation due to pt's apprehension of having a PF evaluation. Discussed at length results of evaluation, goals and plan of care; pt agreeable. Pt educated in use of Bladder Diary and I/S in tracking for 1 week. Discussed use of 2 different diaries for tracking of bladder. Activities Self-Care/Home Management Activities Issued & reviewed HEP: Deep Breathing. Pt I/S to do in sitting and supine. PT-OP-T Assessment and Plan Start: 01/25/21 12:43 Freq: Status: Active Protocol: Document 01/25/21 14:19 LRN (Rec: 01/25/21 15:29 LRN [id number]) Physical Therapy Assessment Rehab Potential Rehabilitation Potential Good Evaluation Complexity Number of Personal Factors/Comorbidities 3 or More Number of Body Systems Impaired 4 or More Clinical Presentation at Evaluation Evolving Impairments Impairments Activity Tolerance,ROM, Strength,Transfers Other Impairments Urinary leakage. Occasional constipation. Goals Four Impairment Decreased L hip mobility (IR 10 deg's L, 30 deg's R; ER 50 deg's miriam) Short Term Goal (STG) Pt will be independent in home program of hip ER/IR stretches. STG Duration 02/08/21 [place] Goal (LTG) Pt will demonstrate improved L hip IR and bilateral hip ER mobility (note: R JARRED hx). LTG Duration 03/26/21 Three Impairment Increased daily frequency of urination (every 20') Short Term Goal (STG) Improve time between voids to every 45 minutes - 1 hour. STG Duration 02/19/21 [place] Goal (LTG) Improve time between voids to every 2 hours. LTG Duration 03/26/21 Two Impairment Urinary leakage in the presence of a strong urge Short Term Goal (STG) Pt will be educated in urinary delay technique. STG Duration 02/01/21 [place] Goal (LTG) Improve PF endurance to 10 sec hold in supine to help with bladder stability and to decrease urinary leakage. LTG Duration 03/26/21 One Impairment Pt lacks an independent self care HEP. Short Term Goal (STG) Pt will be able to perform a proper deep breathing. STG Duration 02/08/21 [place] Goal (LTG) Pt will be independent in a self care program and self care HEP. LTG Duration 03/26/21 Assessment Summary Assessment Pt presents with urge incontinence, due partially to anterior PF tightness (also associated to history of constipation) and anterior PF weakness (no visible clitoral nod present). She has a palpable rectocele with bulging due to stool in rectum . Her vaginal opening is small and tender; therefore I was unable to visualize for cystocele. The pt's vaginal tissues are somewhat dry and would benefit from a cream to improve tissue health. She is apprehensive about doing PF physical therapy; therefore progress may be slow due to more pt directed self care and less manual therapy. The pt has asymmetry in hip mobility, postural deviations, and some weakness of her hip rotators. She has fairly good core stability but tends to breath hold; therefore much education is needed to change her exercise and mobility habits of breath holding. The pt will benefit from skilled physical therapy to achieve the above stated goals. Physical Therapy Plan Frequency and Duration Frequency of Treatment 1x/Week Plan of Care Start Date 01/25/21 Plan of Care End Date 03/26/21 Therapeutic Interventions Therapeutic Interventions Home Exercise Program,Manual Therapy,Neuromuscular Re- education,Patient/Caregiver Education,Self-Care/Home Management,Soft Tissue Mobilization,Therapeutic Activities,Therapeutic Exercises Modalities Cold Pack/Ice Massage,Hot Packs Next Visit Focus/Plan Next Note Type Treatment Note Next Visit Plan Review deep breathing ex and discuss breathing with transfers and exercise. Educate pt in urge deference technique. Review bladder diary and discuss/educate pt in fluid intake/output norms, voiding frequency norms, and progress her HEP to hip ROM (L >R hip IR)/strengthening (hip ER, core), and trunk rotation.
--- NOTE | 2021-01-25 16:28 | PT.OIE ---
Current Diagnoses Stiffness of left hip, not elsewhere classified (01/25/21) Muscle weakness (generalized) (01/25/21) Stress incontinence (female) (male) (01/25/21) Mixed incontinence (01/25/21) Past Medical History (Last Updated 07/09/20 @ 17:29 by MARILY Cano) Abnormal EKG Constipation GERD (gastroesophageal reflux disease) (~2011) Hemorrhoids Hip pain, right (Unknown) Hx of malignant neoplasm of parotid gland (Unknown) Hyperlipemia (Unknown) Hypothyroidism (Unknown) Left medial knee pain (11/2018) Osteoarthritis (Unknown) Stress incontinence Vertigo (Unknown) Past Surgical History (Last Reviewed 06/19/20 @ 11:04 by Loly Srinivasan DO) History of salpingoophorectomy (Unknown) Hx of appendectomy (Unknown) Hx of cholecystectomy (Unknown) Hx of hysterectomy (Unknown) 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) Visit Care Team Role Provider Type MARILY Cano Attending Provider Advanced Television Equipment Operator Primary Care Provider Referring Provider Specialty: [facility] Address: [address] [place] [address] Email: [email or web address] Physical Therapy Initial Evaluation PT-OP-A Visit Information Start: 01/25/21 12:43 Freq: Status: Active Protocol: Document 01/25/21 14:19 LRN (Rec: 01/25/21 15:29 LRN [id number]) Out-Patient Physical Therapy Visit Information Visit Information Visit Type Initial Evaluation Visit Start Time 14:19 Visit Stop Time 15:21 Total Visit Minutes 62 Visit Number 1 Evaluation Information Evaluation Date 01/25/21 Precautions Precautions Partial L knee replacement 2019. R hip replacement 6 yrs ago. Hypothyroid, uncontrolled high blood pressure, trying to be managed by diet. PT-OP-B Current Condition Start: 01/25/21 12:43 Freq: Status: Active Protocol: Document 01/25/21 14:19 LRN (Rec: 01/25/21 15:29 LRN [id number]) Current Condition History of Current Condition Onset Date 14 yrs ago, worsened 5 yrs ago . Current Complaints Urinary leakage with urge, and frequency. History of Current Condition Urinary leakage, wears pads all the time. Changes pads 3x /day, yesterday, normal changes 2/24 hrs. Urinates every 15' in the morning. Has hemorrhoids; therefore uses carefree long heavy duty pads. Prior Treatments and Tests None Developmental History Developmental History Uterus, tubes & ovaries removed at age 39. Treatment Goals Patient/Caregiver Goals Pt goals is to not have to urinate every 20 minutes when walking for exercise. Prior Functional Status Baseline Function- ADL's Independent Baseline Function- Mobility Independent Baseline Function- Gait Occasionally uses walking stick with rough terrain, walks by self. Baseline Function- Recreation/Hobbies Swims 3x/week and walk on days not in the pool. Baseline Function- Other Urinate every 30 minutes. Current Functional Impairments (Reported) Functional Limitations- ADL's Less urinary control. Not able to stop leakage, and increased frequency of urination. Functional Limitations- Mobility/Gait Urinates ~ every 20' with walks. Personal Factors Other Personal Factors That May Effect Lives alone, daughter in [employer] [place]. History of constipation that she is working on changing, uncontrolled HBP. PT-OP-C Subjective Start: 01/25/21 12:43 Freq: Status: Active Protocol: Document 01/25/21 14:19 LRN (Rec: 01/25/21 15:29 LRN [id number]) Patient Questionnaires Pelvic Pain and Urgency/Frequency Patient Symptom Scale Pelvic Pain Score 12 PT-OP-I Pelvic Floor Start: 01/25/21 12:43 Freq: Status: Active Protocol: Document 01/25/21 14:19 LRN (Rec: 01/25/21 15:29 LRN [id number]) Pelvic Floor Assessment Urine Other Urinary Symptoms Increased frequency Leakage Size Small Leakage Cause Urge Leaks Per Day 2-3 Voiding Frequency every 20' in AM, in afternoon every 45-60' Nocturia 3-7 Pads Used In 24 Hours 2 Bowel Bowel Symptoms Constipation Other Bowel Symptoms Used to have constipation Bowel Movement Frequency 1/day [place] Stool Chart Comments [place] Stools between 3-4 Pelvic Clock Pelvic Clock 12-3 Tightness Pelvic Clock 3-6 Tightness Pelvic Clock 6-9 Tightness Pelvic Clock 9-12 Tightness Pelvic Clock Other Tightness of vaginal opening. Pt with very small vaginal opening. Prolapse Rectocele Grade 1 Prolapse Comments Palpable bulging of rectum into vaginal canal in supine. Perineal Descent Resting Present Bearing Present Contraction Ability Voluntary Contraction Moderate Voluntary Relaxation Weak Manual Muscle Testing Left 3 Manual Muscle Testing Right 3 Manual Muscle Testing Anterior 1 Manual Muscle Testing Posterior 3 Muscle Endurance (Seconds) 2 Number of Quick Contractions In 10 10 Seconds PT-OP-J Posture/Palpation/Skin Start: 01/25/21 12:43 Freq: Status: Active Protocol: Document 01/25/21 14:19 LRN (Rec: 01/25/21 15:29 LRN [id number]) Posture Evaluation Position Standing Head/C-Spine Posture Forward Head L-Spine Posture Increased Lordosis Shoulder Posture (R) Elevated Scapula Posture (R) Elevated Pelvis Posture Anteriorly Tilted,(L) PSIS Posterior Weight Distribution Balanced Hip Posture (L) Abducted,(R) Abducted Foot Arch (L) No Arch,(R) No Arch Comments Posture Comments Dowagers hump, L shoulder/ scpaular is low, head tilt right, R PSIS is forward, increased lordosis & anterior tilt of pelvis. Wide stance PT-OP-K Range of Motion Start: 01/25/21 12:43 Freq: Status: Active Protocol: Document 01/25/21 14:19 LRN (Rec: 01/25/21 15:29 LRN [id number]) Lumbar Spine Range of Motion Lumbar Spine Active Degrees Testing Position Standing Flexion 105 Extension 15 Rotation Left 20 Rotation Right 20 Lateral Flexion Left 15 Lateral Flexion Right 15 Comments 105/80 15/5 Hip Goniometric Range of Motion Hip Right Passive Hip ROM WFL No Testing Position Supine Flexion w/Knee Flexed 90 Straight Leg Raise 95 Internal Rotation 30 External Rotation 50 Left Passive Hip ROM WFL Yes Testing Position Supine Flexion w/Knee Flexed 105 Straight Leg Raise 105 Internal Rotation 10 External Rotation 50 PT-OP-M Strength Start: 01/25/21 12:43 Freq: Status: Active Protocol: Document 01/25/21 14:19 LRN (Rec: 01/25/21 15:29 LRN [id number]) Trunk Strength Trunk Manual Muscle Testing Core Stabilization Decreased core stability with R hip resisted flexion and hip AB Hip Strength Hip Manual Muscle Testing Right Flexion (L2) 5 Normal Extension (S1) 5 Normal Abduction 5 Normal Adduction 5 Normal External Rotation 3 Fair Internal Rotation 5 Normal Left Flexion (L2) 5 Normal Extension (S1) 5 Normal Abduction 5 Normal Adduction 5 Normal External Rotation 4 Good Internal Rotation 5 Normal Comments Decreased lift for extension PT-OP-Q Treatments Start: 01/25/21 12:43 Freq: Status: Active Protocol: Document 01/25/21 14:19 LRN (Rec: 01/25/21 15:29 LRN [id number]) Therapeutic Exercises Sitting Exercises Deep Breathing Sitting Exercise Name Deep Breathing Reps/Minutes 2' Self-Care/Home Management Treatment Education Other Education Discussed carefully proceeding of evaluation due to pt's apprehension of having a PF evaluation. Discussed at length results of evaluation, goals and plan of care; pt agreeable. Pt educated in use of Bladder Diary and I/S in tracking for 1 week. Discussed use of 2 different diaries for tracking of bladder. Activities Self-Care/Home Management Activities Issued & reviewed HEP: Deep Breathing. Pt I/S to do in sitting and supine. PT-OP-T Assessment and Plan Start: 01/25/21 12:43 Freq: Status: Active Protocol: Document 01/25/21 14:19 LRN (Rec: 01/25/21 15:29 LRN [id number]) Physical Therapy Assessment Rehab Potential Rehabilitation Potential Good Evaluation Complexity Number of Personal Factors/Comorbidities 3 or More Number of Body Systems Impaired 4 or More Clinical Presentation at Evaluation Evolving Impairments Impairments Activity Tolerance,ROM, Strength,Transfers Other Impairments Urinary leakage. Occasional constipation. Goals Four Impairment Decreased L hip mobility (IR 10 deg's L, 30 deg's R; ER 50 deg's miriam) Short Term Goal (STG) Pt will be independent in home program of hip ER/IR stretches. STG Duration 02/08/21 [place] Goal (LTG) Pt will demonstrate improved L hip IR and bilateral hip ER mobility (note: R JARRED hx). LTG Duration 04/25/21 Three Impairment Increased daily frequency of urination (every 20') Short Term Goal (STG) Improve time between voids to every 45 minutes - 1 hour. STG Duration 02/19/21 [place] Goal (LTG) Improve time between voids to every 2 hours. LTG Duration 04/25/21 Two Impairment Urinary leakage in the presence of a strong urge Short Term Goal (STG) Pt will be educated in urinary delay technique. STG Duration 02/01/21 [place] Goal (LTG) Improve PF endurance to 10 sec hold in supine to help with bladder stability and to decrease urinary leakage. LTG Duration 04/25/21 One Impairment Pt lacks an independent self care HEP. Short Term Goal (STG) Pt will be able to perform a proper deep breathing. STG Duration 02/08/21 [place] Goal (LTG) Pt will be independent in a self care program and self care HEP. LTG Duration 04/25/21 Assessment Summary Assessment Pt presents with urge incontinence, due partially to anterior PF tightness (also associated to history of constipation) and anterior PF weakness (no visible clitoral nod present). She has a palpable rectocele with bulging due to stool in rectum . Her vaginal opening is small and tender; therefore I was unable to visualize for cystocele. The pt's vaginal tissues are somewhat dry and would benefit from a cream to improve tissue health. She is apprehensive about doing PF physical therapy; therefore progress may be slow due to more pt directed self care and less manual therapy. The pt has asymmetry in hip mobility, postural deviations, and some weakness of her hip rotators. She has fairly good core stability but tends to breath hold; therefore much education is needed to change her exercise and mobility habits of breath holding. The pt will benefit from skilled physical therapy to achieve the above stated goals. Physical Therapy Plan Frequency and Duration Frequency of Treatment 1x/Week Plan of Care Start Date 01/25/21 Plan of Care End Date 04/25/21 Therapeutic Interventions Therapeutic Interventions Home Exercise Program,Manual Therapy,Neuromuscular Re- education,Patient/Caregiver Education,Self-Care/Home Management,Soft Tissue Mobilization,Therapeutic Activities,Therapeutic Exercises Modalities Cold Pack/Ice Massage,Hot Packs Next Visit Focus/Plan Next Note Type Treatment Note Next Visit Plan Review deep breathing ex and discuss breathing with transfers and exercise. Educate pt in urge deference technique. Review bladder diary and discuss/educate pt in fluid intake/output norms, voiding frequency norms, and progress her HEP to hip ROM (L >R hip IR)/strengthening (hip ER, core), and trunk rotation.
--- NOTE | 2021-03-30 16:07 | PT.OPDS ---
Current Diagnoses Stiffness of left hip, not elsewhere classified (01/25/21) Muscle weakness (generalized) (01/25/21) Stress incontinence (female) (male) (01/25/21) Mixed incontinence (01/25/21) Visit Care Team Role Provider Type MARILY Cano Attending Provider [employer] Primary Care Provider Referring Provider Specialty: [facility] Address: [address] [place] [address], [facility] Email: [email or web address] Visit Number Visit Number 1 Discharge Summary PT-OP-B Current Condition Start: 01/25/21 12:43 Freq: Status: Active Protocol: Document 01/25/21 14:19 LRN (Rec: 01/25/21 15:29 LRN [id number]) Current Condition History of Current Condition Onset Date 14 yrs ago, worsened 5 yrs ago . Current Complaints Urinary leakage with urge, and frequency. History of Current Condition Urinary leakage, wears pads all the time. Changes pads 3x /day, yesterday, normal changes 2/24 hrs. Urinates every 15' in the morning. Has hemorrhoids; therefore uses carefree long heavy duty pads. Prior Treatments and Tests None Developmental History Developmental History Uterus, tubes & ovaries removed at age 39. Treatment Goals Patient/Caregiver Goals Pt goals is to not have to urinate every 20 minutes when walking for exercise. Prior Functional Status Baseline Function- ADL's Independent Baseline Function- Mobility Independent Baseline Function- Gait Occasionally uses walking stick with rough terrain, walks by self. Baseline Function- Recreation/Hobbies Swims 3x/week and walk on days not in the pool. Baseline Function- Other Urinate every 30 minutes. Current Functional Impairments (Reported) Functional Limitations- ADL's Less urinary control. Not able to stop leakage, and increased frequency of urination. Functional Limitations- Mobility/Gait Urinates ~ every 20' with walks. Personal Factors Other Personal Factors That May Effect Lives alone, daughter in [place] [place]. History of constipation that she is working on changing, uncontrolled HBP. PT-OP-C Subjective Start: 01/25/21 12:43 Freq: Status: Active Protocol: Document 01/25/21 14:19 LRN (Rec: 01/25/21 15:29 LRN [id number]) Patient Questionnaires Pelvic Pain and Urgency/Frequency Patient Symptom Scale Pelvic Pain Score 12 PT-OP-I Pelvic Floor Start: 01/25/21 12:43 Freq: Status: Active Protocol: Document 01/25/21 14:19 LRN (Rec: 01/25/21 15:29 LRN [id number]) Pelvic Floor Assessment Urine Other Urinary Symptoms Increased frequency Leakage Size Small Leakage Cause Urge Leaks Per Day 2-3 Voiding Frequency every 20' in AM, in afternoon every 45-60' Nocturia 3-7 Pads Used In 24 Hours 2 Bowel Bowel Symptoms Constipation Other Bowel Symptoms Used to have constipation Bowel Movement Frequency 1/day Evangeline Stool Chart Comments Evangeline Stools between 3-4 Pelvic Clock Pelvic Clock 12-3 Tightness Pelvic Clock 3-6 Tightness Pelvic Clock 6-9 Tightness Pelvic Clock 9-12 Tightness Pelvic Clock Other Tightness of vaginal opening. Pt with very small vaginal opening. Prolapse Rectocele Grade 1 Prolapse Comments Palpable bulging of rectum into vaginal canal in supine. Perineal Descent Resting Present Bearing Present Contraction Ability Voluntary Contraction Moderate Voluntary Relaxation Weak Manual Muscle Testing Left 3 Manual Muscle Testing Right 3 Manual Muscle Testing Anterior 1 Manual Muscle Testing Posterior 3 Muscle Endurance (Seconds) 2 Number of Quick Contractions In 10 10 Seconds PT-OP-J Posture/Palpation/Skin Start: 01/25/21 12:43 Freq: Status: Active Protocol: Document 01/25/21 14:19 LRN (Rec: 01/25/21 15:29 LRN [id number]) Posture Evaluation Position Standing Head/C-Spine Posture Forward Head L-Spine Posture Increased Lordosis Shoulder Posture (R) Elevated Scapula Posture (R) Elevated Pelvis Posture Anteriorly Tilted,(L) PSIS Posterior Weight Distribution Balanced Hip Posture (L) Abducted,(R) Abducted Foot Arch (L) No Arch,(R) No Arch Comments Posture Comments Dowagers hump, L shoulder/ scpaular is low, head tilt right, R PSIS is forward, increased lordosis & anterior tilt of pelvis. Wide stance PT-OP-K Range of Motion Start: 01/25/21 12:43 Freq: Status: Active Protocol: Document 01/25/21 14:19 LRN (Rec: 01/25/21 15:29 LRN [id number]) Lumbar Spine Range of Motion Lumbar Spine Active Degrees Testing Position Standing Flexion 105 Extension 15 Rotation Left 20 Rotation Right 20 Lateral Flexion Left 15 Lateral Flexion Right 15 Comments 105/80 15/5 Hip Goniometric Range of Motion Hip Right Passive Hip ROM WFL No Testing Position Supine Flexion w/Knee Flexed 90 Straight Leg Raise 95 Internal Rotation 30 External Rotation 50 Left Passive Hip ROM WFL Yes Testing Position Supine Flexion w/Knee Flexed 105 Straight Leg Raise 105 Internal Rotation 10 External Rotation 50 PT-OP-M Strength Start: 01/25/21 12:43 Freq: Status: Active Protocol: Document 01/25/21 14:19 LRN (Rec: 01/25/21 15:29 LRN [id number]) Trunk Strength Trunk Manual Muscle Testing Core Stabilization Decreased core stability with R hip resisted flexion and hip AB Hip Strength Hip Manual Muscle Testing Right Flexion (L2) 5 Normal Extension (S1) 5 Normal Abduction 5 Normal Adduction 5 Normal External Rotation 3 Fair Internal Rotation 5 Normal Left Flexion (L2) 5 Normal Extension (S1) 5 Normal Abduction 5 Normal Adduction 5 Normal External Rotation 4 Good Internal Rotation 5 Normal Comments Decreased lift for extension PT-OP-T Assessment and Plan Start: 01/25/21 12:43 Freq: Status: Active Protocol: Document 03/30/21 13:28 LRN (Rec: 03/30/21 16:07 LRN [id number]) Physical Therapy Assessment Goals Four Impairment Decreased L hip mobility (IR 10 deg's L, 30 deg's R; ER 50 deg's miriam) Short Term Goal (STG) Pt will be independent in home program of hip ER/IR stretches. STG Duration 02/08/21 (GOAL NOT MET, program not complete) Job Site Superintendent Goal (LTG) Pt will demonstrate improved L hip IR and bilateral hip ER mobility (note: R JARRED hx). LTG Duration 04/25/21 (GOAL NOT MET, program not complete) Three Impairment Increased daily frequency of urination (every 20') Short Term Goal (STG) Improve time between voids to every 45 minutes - 1 hour. STG Duration 02/19/21 (GOAL NOT MET, program not complete) Retirement Goal (LTG) Improve time between voids to every 2 hours. LTG Duration 04/25/21 (GOAL NOT MET, program not complete) Two Impairment Urinary leakage in the presence of a strong urge Short Term Goal (STG) Pt will be educated in urinary delay technique. STG Duration 02/01/21 (GOAL NOT MET, program not complete) Job Site Superintendent Goal (LTG) Improve PF endurance to 10 sec hold in supine to help with bladder stability and to decrease urinary leakage. LTG Duration 04/25/21 (GOAL NOT MET, program not complete) One Impairment Pt lacks an independent self care HEP. Short Term Goal (STG) Pt will be able to perform a proper deep breathing. STG Duration 02/08/21 (GOAL NOT MET, program not complete) Job Site Superintendent Goal (LTG) Pt will be independent in a self care program and self care HEP. LTG Duration 04/25/21 (GOAL NOT MET, program not complete) Assessment Summary Assessment Pt called on 01/25/21 to request cancelation of all appointments after her initial evaluation. The pt had reported she did not want to do pelvic floor PT. Pt did not complete program; therefore goals not met. Physical Therapy Plan Discharge Physical Therapy Discharge Reasons No Longer Attending PT Discharge Comments Thank you for your referral.
== END 2021-03-31 08:16 | disposition home or self-care (01) ==
LOC: PHYS 13:56
PROVIDERS: PCP Nurse Practitioner Family; Referring Provider Nurse Practitioner Family; Visit Provider Nurse Practitioner Family
DX: M62.81 Muscle weakness (generalized) (principal); M25.652 Stiffness of left hip, not elsewhere classified; N39.46 Mixed incontinence
CPT/HCPCS: 97162; 97535

== ENCOUNTER → 2021-07-09 07:04 | Outpatient (CLI) | payer MEDICARE, OTHER, SELFPAY ==
[2021-07-09 08:21] LABS: Hematocrit 39.5 % (36-46); Hemoglobin 13.2 g/dL (12.0-16.0); Mean Corpuscular HGB Conc 33.4 % (30-36); Mean Corpuscular Hemoglobin 29.6 PG (26-34); Mean Corpuscular Volume 88.5 fL (80-100); Platelet Count 276 X10^3/uL (150-400); Red Blood Cell Count 4.46 X10^6/uL (4.0-5.2); Red Cell Distribution Width 14.3 % (11.6-14.8); White Blood Cell Count 5.1 X10^3/uL (4.5-11.0)
[2021-07-09 08:47] LABS: Alanine Aminotransferase 20 IU/L (<35); Albumin 3.9 g/dL (3.5-5.0); Albumin Globulin Ratio 1.5 (1.0-2.8); Alkaline Phosphatase 78 U/L (38-126); Aspartate Aminotransferase 25 IU/L (14-36); BUN Creatinine Ratio 19.7 (6-22); Bilirubin Total 0.6 mg/dL (0.2-1.3); Blood Urea Nitrogen 15 mg/dL (7-17); Calcium 9.7 mg/dL (8.4-10.2); Carbon Dioxide 28 mmol/L (22-32); Chloride 106 mmol/L (98-107); Estimated Glomerular Filt Rate > 60.0 mL/min (>60); Globulin 2.6 g/dL (1.7-4.1); Glucose 103 mg/dL (80-110); HEMOLYSIS < 15 (0-50); Potassium 4.4 mmol/L (3.4-5.1); Sodium 140 mmol/L (137-145); Total Protein 6.5 g/dL (6.3-8.2)
[2021-07-09 09:04] LABS: Free T4, Direct Thyroxine 1.01 ng/dL (0.78-2.19)
[2021-07-09 09:18] LABS: Thyroid Stimulating Hormone 1.99 uIU/mL (0.47-4.68)
== END ==
PROVIDERS: PCP Nurse Practitioner Family; Referring Provider Nurse Practitioner Family; Visit Provider Nurse Practitioner Family
DX: E03.9 Hypothyroidism, unspecified (principal); Z00.00 Encounter for general adult medical examination without abnormal findings
CPT/HCPCS: 36415; 80053; 84439; 84443; 85027

== ENCOUNTER → 2021-07-20 07:03 | Outpatient (CLI) | payer MEDICARE, OTHER, SELFPAY ==
[2021-07-20 09:02] LABS: Cholesterol 275 mg/dL (140-199); HDL Cholesterol 75 mg/dL (40-60); LDL Cholesterol Calculated 173 mg/dL (<100); Triglycerides 135 mg/dL (35-150)
== END ==
PROVIDERS: PCP Nurse Practitioner Family; Referring Provider Nurse Practitioner Family; Visit Provider Nurse Practitioner Family
DX: E78.2 Mixed hyperlipidemia (principal)
CPT/HCPCS: 36415; 80061

== ENCOUNTER → 2021-08-24 15:02 | Outpatient (CLI) | payer MEDICARE, OTHER, SELFPAY ==
--- NOTE | 2021-08-24 15:05 | DI.RAD.S_ITS ---
PROCEDURE: XR HIP W PEL IF DONE RT 2V INDICATIONS: right hip pain TECHNIQUE: AP pelvis with lateral view(s) of the right hip(s). COMPARISON: [facility], CR, XR PELVIS WITH LATERAL HIP RIGHT, 11/20/2018, 9:22. [facility], CR, HIP 2V RIGHT, 12/08/2011, 15:08. FINDINGS: Bones: No fractures or dislocations. Pelvic ring appears intact. No suspicious bony lesions. Right hip arthroplasty is present. Hardware is intact without fracture or periprosthetic loosening. 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 Soft tissues: The visualized bowel gas pattern is normal. No suspicious soft tissue calcifications. IMPRESSION: Stable appearance of right hip arthroplasty. Dictated by: Amna Huizar M.D. on 08/24/2021 at 20:39 Approved by: Amna Huizar M.D. on 08/24/2021 at 20:40
== END ==
PROVIDERS: PCP Nurse Practitioner Family; Referring Provider Nurse Practitioner Family; Visit Provider Nurse Practitioner Family
DX: M25.551 Pain in right hip (principal); Z96.641 Presence of right artificial hip joint
CPT/HCPCS: 73502

== ENCOUNTER → 2021-08-30 07:28 | Outpatient (CLI) | payer MEDICARE, OTHER, SELFPAY ==
[2021-08-30 08:44] LABS: Hematocrit 38.3 % (36-46); Hemoglobin 12.9 g/dL (12.0-16.0); Mean Corpuscular HGB Conc 33.7 % (30-36); Mean Corpuscular Hemoglobin 29.8 PG (26-34); Mean Corpuscular Volume 88.5 fL (80-100); Platelet Count 269 X10^3/uL (150-400); Red Blood Cell Count 4.32 X10^6/uL (4.0-5.2); Red Cell Distribution Width 14.2 % (11.6-14.8); White Blood Cell Count 4.8 X10^3/uL (4.5-11.0)
[2021-08-30 08:46] LABS: Alanine Aminotransferase 20 IU/L (<35); Albumin 3.8 g/dL (3.5-5.0); Albumin Globulin Ratio 1.5 (1.0-2.8); Alkaline Phosphatase 66 U/L (38-126); Aspartate Aminotransferase 22 IU/L (14-36); BUN Creatinine Ratio 16.5 (6-22); Bilirubin Total 0.5 mg/dL (0.2-1.3); Blood Urea Nitrogen 13 mg/dL (7-17); Calcium 9.4 mg/dL (8.4-10.2); Carbon Dioxide 28 mmol/L (22-32); Chloride 109 mmol/L (98-107); Estimated Glomerular Filt Rate > 60.0 mL/min (>60); Globulin 2.6 g/dL (1.7-4.1); Glucose 105 mg/dL (80-110); HEMOLYSIS < 15 (0-50); Potassium 4.3 mmol/L (3.4-5.1); Sodium 138 mmol/L (137-145); Total Protein 6.4 g/dL (6.3-8.2)
[2021-09-01 18:17] LABS: Calprotectin, Stool 26 ug/g (0-120)
== END ==
PROVIDERS: PCP Nurse Practitioner Family; Referring Provider Nurse Practitioner Family; Visit Provider Nurse Practitioner Family
DX: Z00.00 Encounter for general adult medical examination without abnormal findings (principal); R19.7 Diarrhea, unspecified; R19.4 Change in bowel habit
CPT/HCPCS: 36415; 80053; 83993; 85027; 87045; 87147; 87177; 87899

== ENCOUNTER → 2022-04-30 16:29 | Outpatient (CLI) | payer MEDICARE, OTHER, SELFPAY | PROVIDERS: PCP Nurse Practitioner Family; Visit Provider Nurse Practitioner Family | DX: R30.0 Dysuria (principal) | CPT/HCPCS: 87086 ==

== ENCOUNTER → 2022-06-14 07:37 | Outpatient (CLI) | payer MEDICARE, OTHER, SELFPAY ==
[2022-06-14 09:09] LABS: BUN Creatinine Ratio 21.5 (6-22); Blood Urea Nitrogen 17 mg/dL (7-17); Calcium 9.1 mg/dL (8.4-10.2); Carbon Dioxide 29 mmol/L (22-32); Chloride 104 mmol/L (98-107); Cholesterol 230 mg/dL (140-199); Estimated Glomerular Filt Rate > 60 mL/min (>60); Glucose 96 mg/dL (80-110); HDL Cholesterol 61 mg/dL (40-60); HEMOLYSIS < 15 (0-50); LDL Cholesterol Calculated 147 mg/dL (<100); Potassium 4.7 mmol/L (3.4-5.1); Sodium 140 mmol/L (137-145); Triglycerides 108 mg/dL (35-150)
== END ==
PROVIDERS: PCP Family Medicine; Referring Provider Family Medicine; Visit Provider Family Medicine
DX: E78.2 Mixed hyperlipidemia (principal); E03.9 Hypothyroidism, unspecified
CPT/HCPCS: 36415; 80048; 80061

== ENCOUNTER 2022-07-08 17:53 | Emergency (ER) | payer MEDICARE, OTHER, SELFPAY ==
[2022-07-08] VITALS (18 sets, daily range): BP systolic 138–194; BP diastolic 61–93; PULSE 38–58; RESP 12–32; TEMP 36.6; O2SAT 92–98
--- NOTE | 2022-07-08 18:40 | DI.RAD.S_ITS ---
PROCEDURE: XR CHEST 1V INDICATIONS: chest pain TECHNIQUE: One view of the chest was acquired. COMPARISON: [facility], CR, XR CHEST 2V, 04/12/2018, 17:26. FINDINGS: Surgical changes and devices: None. Lungs and pleura: Lungs are clear. No pleural effusions or pneumothorax. Mediastinum: Mediastinal contours appear normal. Heart size is normal. Bones and chest wall: No suspicious bony lesions. Overlying soft tissues appear unremarkable. IMPRESSION: No acute pulmonary process. Dictated by: Amna Huizar M.D. on 07/08/2022 at 19:00 Approved by: Amna Huizar M.D. on 07/08/2022 at 19:01
--- NOTE | 2022-07-08 18:46 | ED.GENADULT ---
HPI - General Adult General Chief complaint: Dizziness Stated complaint: Dizzy, Nauseated Time Seen by Provider: 07/08/22 18:46 Source: patient Mode of arrival: Ambulatory History of Present Illness HPI narrative: 87-year-old woman with a history of hypothyroidism, hyperlipidemia with frequent dizzy spells presents with dizziness. She describes her usual dizzy spells as brief associated with some ?fuzzy thinking? and she is wondering if they might be a migraine equivalent. Today her dizziness seemed significantly different, was not associated with a ?fuzzy thinking? did not seem to be worse if she was lying or standing but was associated with mild nausea. She notes that all of these episodes do recur frequently every 2-3 months. Symptoms today started at 12:30 p.m. and have significantly improved approximately 10 hours later. This is not associated with any pain, shortness at breath, fever, cough, chills. She notes that her right ear will intermittently hurt and have tinnitus but this has been a long-term problem and does not seem to be otherwise related. She does not report any palpitations, lower extremity edema or orthopnea. Related Data Home Medications Medication Instructions Recorded Confirmed MULTIVITAMIN (#POLYVITAMIN 0.5 ML) PO QDAY ##0 05/21/12 07/04/22 [vitamin d] PO QDAY ##0 05/21/12 07/04/22 aspirin 81 mg tablet,delayed 81 mg PO DAILY 04/12/18 07/04/22 release (Adult Low Dose Aspirin) magnesium 250 mg tablet 500 mg PO DAILY 05/02/19 07/04/22 Al hyd-Mg tr-alg ac-sod bicarb 80 tab PO 03/31/20 07/04/22 mg-14.2 mg chewable tablet (Gaviscon) ascorbic acid 1,000 mg PO 03/31/20 07/04/22 wg-[id number]-[id number] powder effervescent pack (Emergen-C) Previous Rx's Medication Instructions Recorded levothyroxine 75 mcg tablet 75 mcg PO QDAY #90 tabs 05/23/22 (Synthroid) estradiol 0.01% (0.1 mg/gram) 2 g vaginal .COMPLEX vaginal 06/15/22 vaginal cream atrophy #42.5 grams ezetimibe 10 mg tablet 10 mg PO DAILY #90 tabs 07/04/22 Allergies Allergy/AdvReac Type Severity Reaction Status Date / Time pneumococcal vaccine Allergy Intermediate SWELLING Verified 07/08/22 18:39 AND REDNESS AND INJECTION SITE Fyxtxvv-ROR-UxZ Reductase AdvReac Severe Leg cramps Verified 07/08/22 18:39 Inhibitor [[id number] REDUCTASE INHIBITOR] Review of Systems Review of Systems Narrative: Remainder of complete review of systems is otherwise unremarkable except for that included in the HPI. 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 Father Stroke Mother Heart attack Sister Stroke Sister No problems noted. Sister No problems noted. Sister No problems noted. Family/Other Cancer Social History Smoking Status: Former smoker Tobacco: How many years used: 40 second hand exposure: No alcohol intake: current (1 drink most nights ) substance use type: does not use Smoking Status: Former smoker alcohol intake frequency: 0-2 drinks per day Substance Use Type: does not use Exam Initial Vital Signs Initial Vital Signs: Vital Signs Temperature 97.9 F 07/08/22 18:36 Pulse Rate 41 L 07/08/22 18:36 Respiratory Rate 17 07/08/22 18:36 Blood Pressure 194/93 H 07/08/22 18:36 Pulse Oximetry 97 07/08/22 18:36 Oxygen Delivery Method 07/08/22 18:36 General: Healthy appearing, in no acute distress. Able to give a complete and coherent history. Well-nourished well-developed HEENT: Moist mucous membranes, normal sclera with reactive pupils, Neck: No JVD, supple Respiratory: Lungs are clear to auscultation, no wheezing no rales no rhonchi. Full and symmetrical air movement Cardiac: Regular rate and rhythm no murmurs no bruits Abdomen: Soft, nontender, good bowel tones, no flank pain Skin: Warm and dry, no rashes Neurologic: Grossly neurologically intact with no obvious asymmetries or abnormalities Extremities: No trauma, well perfused Psych: Cooperative, appropriate insight and affect Course Orders Ordered: ED Orders 07/08/22 18:40 XR chest 1V Stat 07/08/22 18:42 EKG-12 Lead Stat 07/08/22 18:55 Complete Blood Count AUTO DIFF Stat Comprehensive Metabolic Panel Stat Partial Thromboplastin Time Stat Prothrombin Time INR Stat TSH [Thyroid Stimulating Hormone] Stat Troponin & CK Cardiac Panel Stat 07/08/22 19:18 COVID19 -Nasal RAPID/Pre-Proc Stat Discontinued Medications Sodium Chloride (Normal Saline 0.9%) 500 mls @ 1,000 mls/hr IV BOLUS ONE Stop: 07/09/22 00:33 Last Infusion: 07/09/22 00:48 Dose: 0 mls/hr Documented By: Admin: 07/09/22 00:14 Dose: 1,000 mls/hr Documented By: [place]ON Vital Signs Vital signs: Vital Signs - 8 hr 07/08/22 18:36 07/08/22 19:10 07/08/22 19:16 Temperature 97.9 F Pulse Rate 41 L 58 L Pulse Rate [Orthostatic Lying] Pulse Rate [Orthostatic Sitting] Pulse Rate [Orthostatic Standing] Respiratory Rate 17 Blood Pressure 194/93 H 154/66 H Blood Pressure [Orthostatic Lying] Blood Pressure [Orthostatic Sitting] Blood Pressure [Orthostatic Standing] Pulse Oximetry 97 96 Oxygen Delivery Method Room Air 07/08/22 19:18 07/08/22 19:18 07/08/22 20:51 Temperature Pulse Rate 41 L Pulse Rate [Orthostatic Lying] 41 L Pulse Rate [Orthostatic Sitting] 48 L Pulse Rate [Orthostatic Standing] 55 L Respiratory Rate 32 H Blood Pressure 153/70 H Blood Pressure [Orthostatic Lying] 145/63 H Blood Pressure [Orthostatic Sitting] 143/63 H Blood Pressure [Orthostatic Standing] 153/68 H Pulse Oximetry 97 Oxygen Delivery Method 07/08/22 19:30 07/08/22 20:00 07/08/22 20:30 Temperature Pulse Rate 40 L 40 L 39 L Pulse Rate [Orthostatic Lying] Pulse Rate [Orthostatic Sitting] Pulse Rate [Orthostatic Standing] Respiratory Rate 18 Blood Pressure Blood Pressure [Orthostatic Lying] Blood Pressure [Orthostatic Sitting] Blood Pressure [Orthostatic Standing] Pulse Oximetry 96 97 96 Oxygen Delivery Method 07/08/22 20:46 07/08/22 20:46 07/08/22 20:49 Temperature Pulse Rate 46 L Pulse Rate [Orthostatic Lying] Pulse Rate [Orthostatic Sitting] Pulse Rate [Orthostatic Standing] Respiratory Rate Blood Pressure 145/63 H 143/63 H Blood Pressure [Orthostatic Lying] Blood Pressure [Orthostatic Sitting] Blood Pressure [Orthostatic Standing] Pulse Oximetry 96 Oxygen Delivery Method 07/08/22 20:49 07/08/22 20:50 07/08/22 20:50 Temperature Pulse Rate 46 L 55 L Pulse Rate [Orthostatic Lying] Pulse Rate [Orthostatic Sitting] Pulse Rate [Orthostatic Standing] Respiratory Rate 20 Blood Pressure 153/68 H Blood Pressure [Orthostatic Lying] Blood Pressure [Orthostatic Sitting] Blood Pressure [Orthostatic Standing] Pulse Oximetry 96 97 Oxygen Delivery Method 07/08/22 21:00 07/08/22 21:30 07/08/22 22:00 Temperature Pulse Rate 39 L 41 L 41 L Pulse Rate [Orthostatic Lying] Pulse Rate [Orthostatic Sitting] Pulse Rate [Orthostatic Standing] Respiratory Rate 22 24 Blood Pressure Blood Pressure [Orthostatic Lying] Blood Pressure [Orthostatic Sitting] Blood Pressure [Orthostatic Standing] Pulse Oximetry 96 96 96 Oxygen Delivery Method 07/08/22 23:32 07/08/22 22:30 07/08/22 23:00 Temperature Pulse Rate 38 L 45 L 48 L Pulse Rate [Orthostatic Lying] Pulse Rate [Orthostatic Sitting] Pulse Rate [Orthostatic Standing] Respiratory Rate 16 12 13 Blood Pressure 138/61 Blood Pressure [Orthostatic Lying] Blood Pressure [Orthostatic Sitting] Blood Pressure [Orthostatic Standing] Pulse Oximetry 98 95 92 Oxygen Delivery Method Room Air 07/08/22 23:30 07/08/22 23:32 07/08/22 23:32 Temperature Pulse Rate 42 L 42 L Pulse Rate [Orthostatic Lying] Pulse Rate [Orthostatic Sitting] Pulse Rate [Orthostatic Standing] Respiratory Rate 14 14 Blood Pressure 138/61 Blood Pressure [Orthostatic Lying] Blood Pressure [Orthostatic Sitting] Blood Pressure [Orthostatic Standing] Pulse Oximetry 94 95 Oxygen Delivery Method 07/09/22 00:00 07/09/22 00:30 07/09/22 01:00 Temperature Pulse Rate 45 L 42 L 44 L Pulse Rate [Orthostatic Lying] Pulse Rate [Orthostatic Sitting] Pulse Rate [Orthostatic Standing] Respiratory Rate 26 H 26 H 26 H Blood Pressure Blood Pressure [Orthostatic Lying] Blood Pressure [Orthostatic Sitting] Blood Pressure [Orthostatic Standing] Pulse Oximetry 95 95 95 Oxygen Delivery Method Medical Decision Making Lab Data Result diagrams: 07/08/22 18:55 07/08/22 18:55 Labs: Lab Results 07/08/22 07/08/22 07/08/22 Range/Units 18:55 18:55 18:55 WBC 6.3 (4.5-11.0) X10^3/uL RBC 4.45 (4.0-5.2) X10^6/uL Hgb 13.3 (12.0-16.0) g/dL Hct 40.0 (36-46) % MCV 90.0 (80-100) fL MCH 29.8 (26-34) PG MCHC 33.1 (30-36) % RDW 14.3 (11.6-14.8) % Plt Count 261 (150-400) X10^3/uL Neut % (Auto) 71.3 (50-75) % Lymph % (Auto) 16.6 L (25-40) % Gregg % (Auto) 7.7 (3-14) % Eos % (Auto) 3.8 (2-4) % Baso % (Auto) 0.6 (0-2) % Neut # (Auto) 4500 (3306-8717) /uL Lymph # (Auto) 1000 L (1023-9482) /uL Gregg # (Auto) 500 (0-900) /uL Eos # (Auto) 200 (0-450) /uL Baso # (Auto) 0 (0-100) /uL PT 10.9 (10.1-12.7) SECONDS INR 1.0 (0.9-1.3) APTT 31 (26-36) SECONDS Sodium 138 (137-145) mmol/L Potassium 4.0 (3.4-5.1) mmol/L Chloride 104 (98-107) mmol/L Carbon Dioxide 26 (22-32) mmol/L BUN 16 (7-17) mg/dL Creatinine 0.71 (0.52-1.04) mg/dL Estimated GFR > 60 (>60) mL/min BUN/Creatinine Ratio 22.5 H (6-22) Glucose 120 H (80-110) mg/dL Calcium 9.3 (8.4-10.2) mg/dL Total Bilirubin 0.4 (0.2-1.3) mg/dL AST 25 (14-36) IU/L ALT 28 (<35) IU/L Alkaline Phosphatase 96 (38-126) U/L Total Creatine Kinase 70 (30-135) U/L CK-MB (CK-2) TNP CK-MB (CK-2) Rel Index TNP Troponin I < 0.012 (0.01-0.034) ng/mL Total Protein 7.5 (6.3-8.2) g/dL Albumin 4.1 (3.5-5.0) g/dL Globulin 3.4 (1.7-4.1) g/dL Albumin/Globulin Ratio 1.2 (1.0-2.8) TSH (0.47-4.68) uIU/mL SARS-CoV-2 (PCR) (Negative) 07/08/22 07/08/22 Range/Units 18:55 19:18 WBC (4.5-11.0) X10^3/uL RBC (4.0-5.2) X10^6/uL Hgb (12.0-16.0) g/dL Hct (36-46) % MCV (80-100) fL MCH (26-34) PG MCHC (30-36) % RDW (11.6-14.8) % Plt Count (150-400) X10^3/uL Neut % (Auto) (50-75) % Lymph % (Auto) (25-40) % Gregg % (Auto) (3-14) % Eos % (Auto) (2-4) % Baso % (Auto) (0-2) % Neut # (Auto) (4383-1901) /uL Lymph # (Auto) (9962-6375) /uL Gregg # (Auto) (0-900) /uL Eos # (Auto) (0-450) /uL Baso # (Auto) (0-100) /uL PT (10.1-12.7) SECONDS INR (0.9-1.3) APTT (26-36) SECONDS Sodium (137-145) mmol/L Potassium (3.4-5.1) mmol/L Chloride (98-107) mmol/L Carbon Dioxide (22-32) mmol/L BUN (7-17) mg/dL Creatinine (0.52-1.04) mg/dL Estimated GFR (>60) mL/min BUN/Creatinine Ratio (6-22) Glucose (80-110) mg/dL Calcium (8.4-10.2) mg/dL Total Bilirubin (0.2-1.3) mg/dL AST (14-36) IU/L ALT (<35) IU/L Alkaline Phosphatase (38-126) U/L Total Creatine Kinase (30-135) U/L CK-MB (CK-2) CK-MB (CK-2) Rel Index Troponin I (0.01-0.034) ng/mL Total Protein (6.3-8.2) g/dL Albumin (3.5-5.0) g/dL Globulin (1.7-4.1) g/dL Albumin/Globulin Ratio (1.0-2.8) TSH 1.40 (0.47-4.68) uIU/mL SARS-CoV-2 (PCR) Negative (Negative) Urine Dip Bedside Urine Glucose Negative Bedside Urine Bilirubin - Negative Bedside Urine Ketone - Negative Bedside Urine Occult Blood - Negative Bedside Urine Protein - Negative Bedside Urine Urobilinogen - Negative Bedside Urine Nitrite - Negative Bedside Urine Leukocytes - Negative Esterase Point of care testing: Urine Dip Bedside Urine Glucose Negative Bedside Urine Bilirubin - Negative Bedside Urine Ketone - Negative Bedside Urine Occult Blood - Negative Bedside Urine Protein - Negative Bedside Urine Urobilinogen - Negative Bedside Urine Nitrite - Negative Bedside Urine Leukocytes - Negative Esterase Imaging Data Chest x-ray: Radiologist's Impression: FINDINGS:? ? Surgical changes and devices:? None.? ? Lungs and pleura:? Lungs are clear.? No pleural effusions or pneumothorax.? ? Mediastinum:? Mediastinal contours appear normal.? Heart size is normal.? ? Bones and chest wall:? No suspicious bony lesions.? Overlying soft tissues appear unremarkable.? ? IMPRESSION:? No acute pulmonary process. ? ? Dictated by: Amna Huizar M.D. on 07/08/2022 at 19:00 ? ? ECG Data Interpretation: Sinus bradycardia at a rate of 42 Left ventricular hypertrophy No acute ischemic changes MDM Narrative Medical decision making narrative: 87-year-old woman with intermittent episodes of dizziness. It sounds like there is 2 different types 1 is more a benign positional vertigo type and 1 is similar to the complaint she experienced today. Throughout her emergency room visit while she is at rest her heart rate is consistently in the 35-45 range. Does not change with a bolus of fluid. Standing her heart rate will go as high as 65. She does not complain of dizziness at this point she is not showing any evidence of stroke-like symptoms. At this time, I see no reason for hospitalization. She is not currently on medications that would cause bradycardia. Clearly this has been an ongoing issue. It does need additional workup and she may benefit from Zio patch monitoring. Will contact physician on-call for Dr. Campbell, her primary care doctor to review this. As it has been so difficult to access care and follow-up would like to make sure that she is able to be accommodated early this week and perhaps even have a Zio patch set up prior to visit with a primary care provider. She has never seen a rehabilitation services director. At this time she is not having signs or symptoms of congestive heart failure or acute coronary syndrome and there is no indication for hospitalization Discussed with Dr Hinton, 2:25am. We will help arrange for Zio patch early next week and rapid follow-up as an outpatient. Patient is safe for discharge home Discharge Plan Departure Patient Disposition: Home Clinical Impression: Dizziness, Bradycardia Instructions: DI for Bradycardia Activity Restrictions/Additional Instructions: Thank you for coming in today Fortunately, your workup was very reassuring. It is safe for you to go home. I did not find any evidence of infection, stroke or cardiac event. Watching her heart rate, when you are rest her heart rate goes quite low. This may be contributing to your overall sense of dizziness. It may be time to begin doing a bit more of a workup regarding your low heart rate to see if you may eventually need a pacemaker because of the significant bradycardia. Please expect to hear from Dr. Campbell is office regarding outpatient heart rate monitor device and follow-up appointments. If you find that you are getting worse or develop any new symptoms, please feel free to return to the emergency department for further evaluation. Prescriptions: No Action aspirin [Adult Low Dose Aspirin] 81 mg tablet,delayed release (DR/EC) 81 mg PO DAILY MULTIVITAMIN (#POLYVITAMIN 0.5 ML) PO QDAY Qty: 0 [vitamin d] PO QDAY Qty: 0 levothyroxine [Synthroid] 75 mcg tablet 75 mcg PO QDAY Qty: 90 0RF estradiol 0.01 % (0.1 mg/gram) cream 2 g vaginal .COMPLEX Qty: 42.5 2RF Rx Instructions: 2 grams vaginally nightly for 2 weeks, then 1 gram nightly for one week, then 1 gram twice a week, via applicator; for 7 days magnesium 250 mg tablet 500 mg PO DAILY Emergen-C 1,000 mg powder effervescent in packet PO Gaviscon 80-14.2 mg tablet,chewable PO ezetimibe 10 mg tablet 10 mg PO DAILY Qty: 90 1RF Referrals: Isabel Campbell DO [Primary Care Provider] -
[2022-07-08 19:04] LABS: Add Manual Diff / Slide Review NO; Basophils Absolute Auto 0 /uL (0-100); Basophils Percent Auto 0.6 % (0-2); Eosinophils Absolute Auto 200 /uL (0-450); Eosinophils Percent Auto 3.8 % (2-4); Hemoglobin 13.3 g/dL (12.0-16.0); Lymphocytes Absolute Auto 1000 /uL (1100-4500); Lymphocytes Percent Auto 16.6 % (25-40); Mean Corpuscular HGB Conc 33.1 % (30-36); Mean Corpuscular Hemoglobin 29.8 PG (26-34); Monocytes Absolute Auto 500 /uL (0-900); Monocytes Percent Auto 7.7 % (3-14); Neutrophils Absolute Auto 4500 /uL (1500-7000); Neutrophils Percent Auto 71.3 % (50-75); Platelet Count 261 X10^3/uL (150-400); Red Blood Cell Count 4.45 X10^6/uL (4.0-5.2); Red Cell Distribution Width 14.3 % (11.6-14.8); White Blood Cell Count 6.3 X10^3/uL (4.5-11.0)
[2022-07-08 19:15] LABS: Prothrombin Time 10.9 SECONDS (10.1-12.7)
[2022-07-08 19:17] LABS: PTT Partial Thromboplastin Tim 31 SECONDS (26-36)
[2022-07-08 19:19] LABS: Alanine Aminotransferase 28 IU/L (<35); Albumin 4.1 g/dL (3.5-5.0); Albumin Globulin Ratio 1.2 (1.0-2.8); Alkaline Phosphatase 96 U/L (38-126); Aspartate Aminotransferase 25 IU/L (14-36); BUN Creatinine Ratio 22.5 (6-22); Bilirubin Total 0.4 mg/dL (0.2-1.3); Blood Urea Nitrogen 16 mg/dL (7-17); Calcium 9.3 mg/dL (8.4-10.2); Carbon Dioxide 26 mmol/L (22-32); Chloride 104 mmol/L (98-107); Creatine Kinase 70 U/L (30-135); Estimated Glomerular Filt Rate > 60 mL/min (>60); Globulin 3.4 g/dL (1.7-4.1); Glucose 120 mg/dL (80-110); HEMOLYSIS < 15 (0-50); Sodium 138 mmol/L (137-145); Total Protein 7.5 g/dL (6.3-8.2)
[2022-07-08 19:30] LABS: Troponin I < 0.012 ng/mL (0.01-0.034)
[2022-07-08 19:56] LABS: COVID19 -Nasal RAPID Negative (Negative)
--- NOTE | 2022-07-08 20:55 | PC.NURSE ---
Reports intermittent dizzy episodes. Today was sitting at computer when it started. Also has nausea. Declines nausea meds at this time.
[2022-07-09] VITALS: PULSE 45; RESP 26; O2SAT 95
[2022-07-09] MEDS: SODIUM CHLORIDE 0.9% 500 ML 1000 ML IV (00:14)
[2022-07-09 00:30] VITALS: PULSE 42; RESP 26; O2SAT 95
[2022-07-09 01:00] VITALS: PULSE 44; RESP 26; O2SAT 95
[2022-07-09 01:30] VITALS: PULSE 42; RESP 12; O2SAT 96
[2022-07-09 02:00] VITALS: PULSE 41; RESP 18; O2SAT 96
[2022-07-09 02:37] VITALS: BP 142/75; PULSE 45; RESP 16; O2SAT 98
== END 2022-07-09 02:38 | disposition home or self-care (01) ==
PROVIDERS: Emergency Provider Emergency Medicine; PCP Family Medicine
DX: R42 Dizziness and giddiness (principal); R00.1 Bradycardia, unspecified; Z20.822 Contact with and (suspected) exposure to COVID-19
CPT/HCPCS: 36415; 71045; 80053; 81003; 82550; 84443; 84484; 85025; 85610; 85730; 87635; 93005; 93010; 96360; 99284; C9803

== ENCOUNTER → 2022-07-20 13:06 | Outpatient (CLI) | payer MEDICARE, OTHER, SELFPAY ==
--- NOTE | 2022-08-16 07:50 | PM.CARDMON.1 ---
Wildlife Photographer Report Referral & Results Date Patient Seen: 07/20/22 Requesting provider: Becki Jiménez Indication: Bradycardia Duration of monitoring (days): 13 Diary information: There were 4 patient triggered events and 4 patient diary entries Patient triggered events were variably associated with (within 45 seconds) sinus rhythm and PACs Patient diary events were associated with sinus rhythm only Data: Minimum heart rate identified was 30 beats per minute at 02:25 on 07/27/2022 Maximum sinus heart rate was 96 beats per minute at 11:47 on 07/25/2022 Maximum overall heart rate was 118 beats per minute at 21:35 on 07/22/2022 during a run of SVT/atrial tachycardia Less than 1% of identified beats were ventricular or supraventricular ectopic in origin, which would classify them as rare. 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 No other significant dysrhythmias identified Clinical correlation suggested
== END ==
PROVIDERS: PCP Family Medicine; Referring Provider Family Medicine; Visit Provider Family Medicine
DX: R00.1 Bradycardia, unspecified (principal)
CPT/HCPCS: 93246; 93248

== ENCOUNTER → 2022-09-26 07:20 | Outpatient (CLI) | payer MEDICARE, SELFPAY | PROVIDERS: PCP Family Medicine; Visit Provider Nurse Practitioner Family | DX: J02.9 Acute pharyngitis, unspecified (principal) | CPT/HCPCS: 87070 ==

== ENCOUNTER → 2022-11-16 16:19 | Outpatient (CLI) | payer MEDICARE, SELFPAY ==
[2022-11-16 17:49] LABS: BUN Creatinine Ratio 22.9 (6-22); Blood Urea Nitrogen 19 mg/dL (7-17); Calcium 9.3 mg/dL (8.4-10.2); Carbon Dioxide 27 mmol/L (22-32); Chloride 104 mmol/L (98-107); Estimated Glomerular Filt Rate > 60 mL/min (>60); Glucose 101 mg/dL (80-110); HEMOLYSIS < 15 (0-50); Sodium 139 mmol/L (137-145)
== END ==
PROVIDERS: PCP Family Medicine; Referring Provider Nurse Practitioner Family; Visit Provider Nurse Practitioner Family
DX: R25.2 Cramp and spasm (principal)
CPT/HCPCS: 36415; 80048

== ENCOUNTER → 2022-12-27 15:47 | Outpatient (CLI) | payer MEDICARE, OTHER, SELFPAY ==
[2022-12-27 16:42] LABS: Influenza A - CEPHEID Flu A NEGATIVE (NEGATIVE); Influenza B - CEPHEID Flu B NEGATIVE (NEGATIVE); Respiratory Syncytial Virus Negative (Negative)
[2022-12-27 17:32] LABS: COVID-19 CEPHEID 4-PLEX PCR Negative (Negative)
== END ==
PROVIDERS: PCP Family Medicine; Visit Provider Physician Assistant
DX: J02.9 Acute pharyngitis, unspecified (principal); R09.81 Nasal congestion; Z20.822 Contact with and (suspected) exposure to COVID-19
CPT/HCPCS: 0241U; 87070

== ENCOUNTER → 2023-04-28 07:52 | Outpatient (CLI) | payer MEDICARE, OTHER, SELFPAY ==
[2023-04-28 08:48] LABS: Add Manual Diff / Slide Review NO; Basophils Absolute Auto 100 /uL (0-100); Basophils Percent Auto 1.1 % (0-2); Eosinophils Absolute Auto 300 /uL (0-450); Hematocrit 38.3 % (36-46); Hemoglobin 13.2 g/dL (12.0-16.0); Lymphocytes Absolute Auto 900 /uL (1100-4500); Lymphocytes Percent Auto 16.6 % (25-40); Mean Corpuscular HGB Conc 34.5 % (30-36); Mean Corpuscular Hemoglobin 30.7 PG (26-34); Mean Corpuscular Volume 89.1 fL (80-100); Monocytes Absolute Auto 500 /uL (0-900); Monocytes Percent Auto 8.8 % (3-14); Neutrophils Absolute Auto 3900 /uL (1500-7000); Neutrophils Percent Auto 67.5 % (50-75); Platelet Count 276 X10^3/uL (150-400); Red Blood Cell Count 4.29 X10^6/uL (4.0-5.2); Red Cell Distribution Width 14.2 % (11.6-14.8); White Blood Cell Count 5.7 X10^3/uL (4.5-11.0)
[2023-04-28 09:37] LABS: BUN Creatinine Ratio 16.4 (6-22); Blood Urea Nitrogen 12 mg/dL (7-17); Calcium 9.2 mg/dL (8.4-10.2); Carbon Dioxide 25 mmol/L (22-32); Chloride 106 mmol/L (98-107); Cholesterol 238 mg/dL (140-199); Estimated Glomerular Filt Rate > 60 mL/min (>60); Glucose 97 mg/dL (80-110); HDL Cholesterol 62 mg/dL (40-60); HEMOLYSIS < 15 (0-50); LDL Cholesterol Calculated 151 mg/dL (<100); Potassium 4.6 mmol/L (3.4-5.1); Sodium 136 mmol/L (137-145); Triglycerides 123 mg/dL (35-150)
[2023-04-28 10:11] LABS: TSH w/ Reflex to FT4 1.84 uIU/mL (0.47-4.68)
== END ==
PROVIDERS: PCP Family Medicine; Referring Provider Family Medicine; Visit Provider Family Medicine
DX: E03.9 Hypothyroidism, unspecified (principal); E78.2 Mixed hyperlipidemia; G57.93 Unspecified mononeuropathy of bilateral lower limbs; K21.9 Gastro-esophageal reflux disease without esophagitis; K59.01 Slow transit constipation; K64.9 Unspecified hemorrhoids; M25.562 Pain in left knee; N39.3 Stress incontinence (female) (male); N95.2 Postmenopausal atrophic vaginitis; R42 Dizziness and giddiness; R53.82 Chronic fatigue, unspecified; R94.31 Abnormal electrocardiogram [ECG] [EKG]; Z78.9 Other specified health status; Z96.641 Presence of right artificial hip joint
CPT/HCPCS: 36415; 80048; 80061; 84443; 85025; 86140

== ENCOUNTER 2023-05-01 14:14 | Emergency (ER) | payer MEDICARE, OTHER, SELFPAY ==
[2023-05-01 14:17] VITALS: BP 132/67; PULSE 66; RESP 16; TEMP 36.6; O2SAT 95; BMI 30.9
[2023-05-01 15:49] LABS: Adenovirus Not Detected (Not Detect); B. parapertussis Not Detected (Not Detecte); Bordetella pertussis Not Detected (Not Detecte); Chlamydophila pneumoniae Not Detected (Not Detect); Coronavirus 229E Not Detected (Not Detect); Coronavirus HKU1 Not Detected (Not Detect); Coronavirus NL 63 Not Detected (Not Detect); Coronavirus OC43 Not Detected (Not Detect); Human Metapneumovirus Not Detected (Not Detect); Human Rhinovirus/Enterovirus Not Detected (Not Detect); Influenza A Not Detected (Not Detect); Influenza B Not Detected (Not Detect); Mycoplasma pneumoniae Not Detected (Not Detect); Parainfluenza Virus 1 Not Detected (Not Detect); Parainfluenza Virus 2 Not Detected (Not Detect); Parainfluenza Virus 3 Not Detected (Not Detect); Parainfluenza Virus 4 Not Detected (Not Detect); Respiratory Syncytial Virus Not Detected (Not Detect); SARS- CoV-2 Not Detected (Not Detecte)
== END 2023-05-01 16:18 | disposition left against medical advice (07) ==
PROVIDERS: Emergency Provider Emergency Medicine; PCP Family Medicine
DX: R42 Dizziness and giddiness (principal); Z20.822 Contact with and (suspected) exposure to COVID-19
CPT/HCPCS: 87633; 99281

== ENCOUNTER → 2023-12-19 14:25 | Outpatient (CLI) | payer MEDICARE, OTHER, SELFPAY ==
[2023-12-19 15:34] LABS: Influenza A - CEPHEID Flu A NEGATIVE (NEGATIVE); Influenza B - CEPHEID Flu B NEGATIVE (NEGATIVE); Respiratory Syncytial Virus Negative (Negative)
[2023-12-19 15:36] LABS: COVID-19 CEPHEID 4-PLEX PCR Negative (Negative)
== END ==
PROVIDERS: PCP Family Medicine; Visit Provider Physician Assistant Surgical
DX: R50.9 Fever, unspecified (principal)
CPT/HCPCS: 0241U

== ENCOUNTER → 2024-05-01 11:35 | Outpatient (CLI) | payer MEDICARE, OTHER, SELFPAY ==
[2024-05-01 12:52] LABS: Influenza A - CEPHEID Flu A NEGATIVE (NEGATIVE); Influenza B - CEPHEID Flu B NEGATIVE (NEGATIVE); Respiratory Syncytial Virus Negative (Negative)
[2024-05-01 13:12] LABS: COVID-19 CEPHEID 4-PLEX PCR POSITIVE (Negative)
== END ==
PROVIDERS: PCP Family Medicine; Visit Provider Physician Assistant
DX: R05.1 Acute cough (principal)
CPT/HCPCS: 0241U

== ENCOUNTER → 2024-06-07 08:39 | Outpatient (CLI) | payer MEDICARE, OTHER, SELFPAY | PROVIDERS: PCP Family Medicine; Visit Provider Nurse Practitioner Family | DX: N89.8 Other specified noninflammatory disorders of vagina (principal); N90.89 Other specified noninflammatory disorders of vulva and perineum | CPT/HCPCS: 87077; 87086; 87186; 87210 ==

== ENCOUNTER 2024-07-24 15:03 | Emergency (ER) | payer MEDICARE, OTHER, SELFPAY ==
[2024-07-24] VITALS (10 sets, daily range): BP systolic 128–177; BP diastolic 61–83; PULSE 43–58; RESP 15–31; TEMP 36.7; O2SAT 96–98; BMI 31.7
--- NOTE | 2024-07-24 15:29 | DI.RAD.S_ITS ---
PROCEDURE: XR CHEST 1V INDICATIONS: chest pain TECHNIQUE: One view of the chest was acquired. COMPARISON: Merged With [facility], CR, XR CHEST 1V, 07/08/2022, 18:41. FINDINGS: Surgical changes and devices: None. Lungs and pleura: Lungs are clear. No pleural effusions or pneumothorax. Mediastinum: Mediastinal contours appear normal. Heart size is normal. Bones and chest wall: No suspicious bony lesions. Overlying soft tissues appear unremarkable. IMPRESSION: No acute cardiopulmonary pathology. Dictated by: Kirill Dawkins M.D. on 07/24/2024 at 16:07 Approved by: Kirill Dawkins M.D. on 07/24/2024 at 16:08
--- NOTE | 2024-07-24 15:36 | EKG_ITS ---
[facility] [address] [place] [address] Test Date: 2024-07-24 Pat Name: Nataliia Houser Department: [facility] Room: Gender: Female Program Director/Traffic Director: TONY : 1935 Requested By: Order Number: [id number] Reading MD: Lebron Sierra MD Measurements Intervals [place] Rate: 53 P: 35 [place]: 194 QRS: -49 QRSD: 126 T: 65 QT: 448 QTc: 420 Interpretive Statements Sinus bradycardia Right bundle branch block Left anterior fascicular block Bifascicular block Minimal voltage criteria for LVH, may be normal variant ( R in aVL ) Septal infarct , age undetermined NO SIGNIFICANT CHANGE FROM PRIOR TRACING Electronically Signed On 07-25-2024 6:47:37 PST by Lebron Sierra MD
--- NOTE | 2024-07-24 15:56 | PC.NURSE ---
Pt states that she has been having chest pressure, dizziness and fatigue since Monday. Pt states that she cannot reall describe it, other than she feels very weak and tired. When she lays down, she develops dry cough. Pt a&ox4.
[2024-07-24 16:06] LABS: Add Manual Diff / Slide Review NO; Basophils Absolute Auto 100 /uL (0-100); Eosinophils Absolute Auto 300 /uL (0-450); Eosinophils Percent Auto 4.9 % (2-4); Hematocrit 40.9 % (36-46); Hemoglobin 13.5 g/dL (12.0-16.0); Lymphocytes Absolute Auto 1000 /uL (1100-4500); Lymphocytes Percent Auto 18.8 % (25-40); Mean Corpuscular Hemoglobin 29.8 PG (26-34); Mean Corpuscular Volume 90.3 fL (80-100); Monocytes Absolute Auto 600 /uL (0-900); Monocytes Percent Auto 11.1 % (3-14); Neutrophils Absolute Auto 3300 /uL (1500-7000); Neutrophils Percent Auto 64.2 % (50-75); Platelet Count 266 X10^3/uL (150-400); Red Blood Cell Count 4.53 X10^6/uL (4.0-5.2); Red Cell Distribution Width 14.6 % (11.6-14.8); White Blood Cell Count 5.2 X10^3/uL (4.5-11.0)
[2024-07-24 16:09] LABS: INR 0.9 (0.9-1.3); Prothrombin Time 10.5 SECONDS (9.4-12.5)
[2024-07-24 16:12] LABS: PTT Partial Thromboplastin Tim 34 SECONDS (25.1-36.5)
[2024-07-24 16:14] LABS: Alanine Aminotransferase 30 IU/L (<35); Albumin 4.2 g/dL (3.5-5.0); Albumin Globulin Ratio 1.5 (1.0-2.8); Alkaline Phosphatase 68 U/L (38-126); Aspartate Aminotransferase 34 IU/L (14-36); BUN Creatinine Ratio 17.9 (6-22); Bilirubin Total 0.4 mg/dL (0.2-1.3); Blood Urea Nitrogen 15 mg/dL (7-17); Calcium 9.4 mg/dL (8.4-10.2); Carbon Dioxide 26 mmol/L (22-32); Chloride 107 mmol/L (98-107); Creatine Kinase 58 U/L (30-135); Estimated Glomerular Filt Rate > 60 mL/min (>60); Globulin 2.8 g/dL (1.7-4.1); Glucose 128 mg/dL (80-110); HEMOLYSIS < 15 (0-50); Lipase 74 U/L (23-300); Magnesium 2.3 mg/dL (1.6-2.3); Potassium 4.1 mmol/L (3.4-5.1); Sodium 138 mmol/L (137-145)
[2024-07-24 16:25] LABS: NT-proBNP (BNP-Adult 18+) 425 pg/mL (<450); Troponin I < 0.012 ng/mL (0.01-0.034)
--- NOTE | 2024-07-24 18:02 | ED_ITS ---
HPI - General Adult General Chief complaint: Dizziness Stated complaint: sent by [facility], heart issues Time Seen by Provider: 07/24/24 16:16 Source: patient Mode of arrival: Ambulatory History of Present Illness HPI narrative: 89yoF with no significant PMH prsents for 4 days of intermittent vertigo, significant fatigue, 1 day of nonproductive cough. Patient was referred from the walk-in clinic where she told them that she had heaviness in her chest. Patient denies chest pain upon my evaluation in the emergency department. 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 Patient noted to be bradycardic on arrival, she states that her resting heart rate is usually in the low 50s. Related Data Home Medications Medication Instructions Recorded Confirmed [vitamin d] PO QDAY ##0 05/21/12 06/07/24 aspirin 81 mg tablet,delayed 81 mg PO DAILY 04/12/18 06/07/24 release (Adult Low Dose Aspirin) Al hyd-Mg tr-alg ac-sod bicarb 80 tab PO 03/31/20 06/07/24 mg-14.2 mg chewable tablet (Gaviscon) ascorbic acid 1,000 mg PO 03/31/20 06/07/24 xe-vlelixwldlfj-legjeuco powder effervescent pack (Emergen-C) mecobalamin (vitamin B12) 1,000 1,000 mcg PO 12/20/22 06/07/24 mcg chewable tablet (B12 Active) magnesium 250 mg tablet 250 mg PO DAILY 07/03/23 06/07/24 Previous Rx's Medication Instructions Recorded estradiol 0.01% (0.1 mg/gram) 2 g vaginal .COMPLEX vaginal 11/01/23 vaginal cream atrophy #42.5 grams ezetimibe 10 mg tablet 10 mg PO DAILY #90 tabs 11/08/23 levothyroxine 75 mcg tablet 75 mcg PO DAILY #90 tabs 07/22/24 Allergies Allergy/AdvReac Type Severity Reaction Status Date / Time pneumococcal vaccine Allergy Intermediate SWELLING Verified 07/24/24 15:03 AND REDNESS AND INJECTION SITE Tvmsfgp-SFR-HvI Reductase AdvReac Severe Leg cramps Verified 07/24/24 15:03 Inhibitor [EDUTIXT-TDE-SPC REDUCTASE INHIBITOR] Patient History Medical History Bowel habit changes Stress incontinence Hemorrhoids Constipation Abnormal EKG (~2019) Left medial knee pain (11/2018) Hx of malignant neoplasm of parotid gland (Unknown) Vertigo (Unknown) GERD (gastroesophageal reflux disease) (~2011) Hip pain, right (Unknown) Hyperlipemia (Unknown) Hypothyroidism (Unknown) Osteoarthritis (Unknown) Surgical History History of right hip replacement Hx of cholecystectomy (Unknown) Hx of appendectomy (Unknown) Hx of hysterectomy (Unknown) History of salpingoophorectomy (Unknown) 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 Father Stroke Mother Heart attack Sister Stroke Sister No problems noted. Sister No problems noted. Sister No problems noted. Family/Other Cancer Social History Smoking Status: Former smoker Tobacco: How many years used: 40 second hand exposure: No alcohol intake: current substance use type: does not use Smoking Status: Former smoker alcohol intake frequency: 0-2 drinks per day Exam Initial Vital Signs Initial Vital Signs: Vital Signs Temperature 98.0 F 07/24/24 15:23 Pulse Rate 58 L 07/24/24 15:23 Respiratory Rate 16 07/24/24 15:23 Blood Pressure 158/70 H 07/24/24 15:23 Pulse Oximetry 96 07/24/24 15:23 Oxygen Delivery Method Room Air 07/24/24 15:23 Const: Awake, alert, no acute distress, nontoxic appearing Cardiac: Bradycardia, regular rhythm RESP: unlabored, clear bilaterally, no wheezing GI: Soft, nontender, nondistended Skin: Warm, Dry, intact, no rashes Neuro: AO x3, CN II-XII grossly intact, moves all extremities Course Orders Ordered: Discontinued Medications Aspirin (Aspirin 81 Mg Chew Tab) 324 mg PO NOW ONE Stop: 07/24/24 15:29 Vital Signs Vital signs: Vital Signs - 8 hr 07/24/24 15:23 07/24/24 18:37 07/24/24 18:39 Temperature 98.0 F Pulse Rate 58 L 46 L 47 L Respiratory Rate 16 24 Blood Pressure 158/70 H Pulse Oximetry 96 97 Oxygen Delivery Method Room Air Room Air 07/24/24 18:39 Temperature Pulse Rate Respiratory Rate Blood Pressure 153/70 H Pulse Oximetry Oxygen Delivery Method Medical Decision Making Lab Data 07/24/24 15:50 07/24/24 15:50 Labs: Lab Results 07/24/24 07/24/24 Range/Units 15:50 18:26 WBC 5.2 (4.5-11.0) X10^3/uL RBC 4.53 (4.0-5.2) X10^6/uL Hgb 13.5 (12.0-16.0) g/dL Hct 40.9 (36-46) % MCV 90.3 (80-100) fL MCH 29.8 (26-34) PG MCHC 33.0 (30-36) % RDW 14.6 (11.6-14.8) % Plt Count 266 (150-400) X10^3/uL Neut % (Auto) 64.2 (50-75) % Lymph % (Auto) 18.8 L (25-40) % [place] % (Auto) 11.1 (3-14) % Eos % (Auto) 4.9 H (2-4) % Baso % (Auto) 1.0 (0-2) % Neut # (Auto) 3300 (2480-6033) /uL Lymph # (Auto) 1000 L (9749-0251) /uL [place] # (Auto) 600 (0-900) /uL Eos # (Auto) 300 (0-450) /uL Baso # (Auto) 100 (0-100) /uL PT 10.5 (9.4-12.5) SECONDS INR 0.9 (0.9-1.3) APTT 34 (25.1-36.5) SECONDS Sodium 138 (137-145) mmol/L Potassium 4.1 (3.4-5.1) mmol/L Chloride 107 (98-107) mmol/L Carbon Dioxide 26 (22-32) mmol/L BUN 15 (7-17) mg/dL Creatinine 0.84 (0.52-1.04) mg/dL Estimated GFR > 60 (>60) mL/min BUN/Creatinine Ratio 17.9 (6-22) Glucose 128 H (80-110) mg/dL Calcium 9.4 (8.4-10.2) mg/dL Magnesium 2.3 (1.6-2.3) mg/dL Total Bilirubin 0.4 (0.2-1.3) mg/dL AST 34 (14-36) IU/L ALT 30 (<35) IU/L Alkaline Phosphatase 68 (38-126) U/L Total Creatine Kinase 58 (30-135) U/L Troponin I < 0.012 (0.01-0.034) ng/mL NT-Pro-B Natriuret Pep 425 (<450) pg/mL Total Protein 7.0 (6.3-8.2) g/dL Albumin 4.2 (3.5-5.0) g/dL Globulin 2.8 (1.7-4.1) g/dL Albumin/Globulin Ratio 1.5 (1.0-2.8) Lipase 74 (23-300) U/L TSH 1.36 (0.47-4.68) uIU/mL Chlamy pneumoniae PCR Not detected (Not Detect) Adenovirus (PCR) Not detected (Not Detect) B. pertussis DNA (PCR) Not detected (Not Detect) B.parapertussis DNA PCR Not detected (Not Detecte) Coronavirus OC43 (PCR) Not detected (Not Detect) Coronavirus HKU1 (PCR) Not detected (Not Detect) Coronavirus 229E (PCR) Not detected (Not Detect) SARS-CoV-2 (PCR) Not detected (Not Detecte) Coronavirus NL63 (PCR) Not detected (Not Detect) Human Metapneumovir PCR Not detected (Not Detect) Influenza Type A (PCR) Not detected (Not Detect) Influenza Type B (PCR) Not detected (Not Detect) M. pneumoniae (PCR) Not detected (Not Detect) Parainfluenza 1 (PCR) Not detected (Not Detect) Parainfluenza 2 (PCR) Not detected (Not Detect) Parainfluenza 3 (PCR) Not detected (Not Detect) Parainfluenza 4 (PCR) Detected H (Not Detect) RSV (PCR) Not detected (Not Detect) Entero/Rhino (PCR) Not detected (Not Detect) Imaging Data Chest x-ray: Radiologist's Impression: PROCEDURE: XR CHEST 1V INDICATIONS: chest pain TECHNIQUE: One view of the chest was acquired. COMPARISON: [facility], , XR CHEST 1V, 07/08/2022, 18:41. FINDINGS: Surgical changes and devices: None. Lungs and pleura: Lungs are clear. No pleural effusions or pneumothorax. Mediastinum: Mediastinal contours appear normal. Heart size is normal. Bones and chest wall: No suspicious bony lesions. Overlying soft tissues appear unremarkable. IMPRESSION: No acute cardiopulmonary pathology. Dictated by: Kirill Dawkins M.D. on 07/24/2024 at 16:07 Approved by: Kirill Dawkins M.D. on 07/24/2024 at 16:08 ECG Data Interpretation: Sinus bradycardia at 53 beats per minute. Normal MD. No STEMI MDM Narrative Medical decision making narrative: Several days of fatigue and intermittent dizziness. Patient resting comfortably in bed, reading a book, hemodynamically stable. Physical exam fairly unremarkable, no obvious abnormalities. Laboratory work, imaging ordered. Laboratory work reviewed, no significant abnormalities. WBC count 5.2, hemoglobin 13.5, platelet count 266, sodium 138, potassium 4.1, creatinine 0.84, glucose 128, normal liver enzymes, troponin undetectable, TSH 1.36. Chest x-ray negative for acute findings. EKG sinus bradycardia without ischemic findings. Patient's serology positive for parainfluenza virus. Possibly source of patient's symptoms since there is relative lack of other obvious etiology for patient's symptoms. Patient reassessed, resting comfortably in bed, she was continuing to read on her book in no acute distress. Patient informed of all lab and imaging findings. I stated that I do not know the exact cause of the patient's symptoms but parainfluenza virus could absolutely contribute. Recommended supportive care measures for home. Discharge Plan Departure Patient Disposition: Home Clinical Impression: Fatigue, Parainfluenza Instructions: DI for Fatigue Activity Restrictions/Additional Instructions: Your blood work, chest x-ray, EKG today were all reassuring. Your respiratory panel did test positive for parainfluenza virus, which is an upper respiratory virus. This may be why you were feeling so fatigued. This virus goes away on its own usually within a week. You may take Tylenol and ibuprofen as needed for discomfort or aches. Make sure that you stay hydrated and drink plenty of fluids. Tried to eat a healthy diet to help your body recover from the virus. If you continued to feel poorly or have any other concerning symptoms please feel free to return to the emergency department for repeat evaluation. Prescriptions: No Action aspirin [Adult Low Dose Aspirin] 81 mg tablet,delayed release (DR/EC) 81 mg PO DAILY [vitamin d] PO QDAY Qty: 0 estradiol 0.01 % (0.1 mg/gram) cream 2 g vaginal .COMPLEX Qty: 42.5 5RF Rx Instructions: Use 1 gram twice a week, via applicator; for 7 days ezetimibe 10 mg tablet 10 mg PO DAILY Qty: 90 2RF levothyroxine 75 mcg tablet 75 mcg PO DAILY Qty: 90 3RF magnesium 250 mg tablet 250 mg PO DAILY Emergen-C 1,000 mg powder effervescent in packet PO Gaviscon 80-14.2 mg tablet,chewable PO mecobalamin (vitamin B12) [B12 Active] 1,000 mcg tablet,chewable 1,000 mcg PO Referrals: Isabel Campbell DO [Primary Care Provider] - Stand Alone Forms: Patient Portal/API/Survey
[2024-07-24 19:23] LABS: Adenovirus Not Detected (Not Detect); B. parapertussis Not Detected (Not Detecte); Bordetella pertussis Not Detected (Not Detect); Chlamydophila pneumoniae Not Detected (Not Detect); Coronavirus 229E Not Detected (Not Detect); Coronavirus HKU1 Not Detected (Not Detect); Coronavirus NL 63 Not Detected (Not Detect); Coronavirus OC43 Not Detected (Not Detect); Human Metapneumovirus Not Detected (Not Detect); Human Rhinovirus/Enterovirus Not Detected (Not Detect); Influenza A Not Detected (Not Detect); Influenza B Not Detected (Not Detect); Mycoplasma pneumoniae Not Detected (Not Detect); Parainfluenza Virus 1 Not Detected (Not Detect); Parainfluenza Virus 2 Not Detected (Not Detect); Parainfluenza Virus 3 Not Detected (Not Detect); Parainfluenza Virus 4 Detected (Not Detect); Respiratory Syncytial Virus Not Detected (Not Detect); SARS- CoV-2 Not Detected (Not Detecte)
[2024-07-24 19:30] LABS: Thyroid Stimulating Hormone 1.36 uIU/mL (0.47-4.68)
== END 2024-07-24 19:42 | disposition home or self-care (01) ==
PROVIDERS: Emergency Medicine; Emergency Provider Emergency Medicine; PCP Family Medicine
DX: B34.8 Other viral infections of unspecified site (principal); R05.9 Cough, unspecified; R07.9 Chest pain, unspecified; R00.1 Bradycardia, unspecified; R53.83 Other fatigue
CPT/HCPCS: 36415; 71045; 80053; 82550; 83690; 83735; 83880; 84443; 84484; 85025; 85610; 85730; 87633; 93005; 93010; 99283; 99284

== ENCOUNTER → 2025-01-01 07:25 | Outpatient (CLI) | payer MEDICARE, OTHER, SELFPAY ==
--- NOTE | 2025-01-01 08:29 | EKG_ITS ---
[facility] [address] [place] [address] Test Date: 2025-01-01 Pat Name: Nataliia Houser Department: Room: Gender: Female Die Baker: : 1935 Requested By: Order Number: [id number] Reading MD: Lebron Sierra MD Measurements Intervals [place] Rate: 42 P: 59 [place]: 210 QRS: -45 QRSD: 126 T: 41 QT: 478 QTc: 399 Interpretive Statements Marked sinus bradycardia with 1st degree AV block Left axis deviation Left ventricular hypertrophy with QRS widening ( R in aVL , Didier product , Romhilt-Drummond ) Cannot rule out Anteroseptal infarct , age undetermined Electronically Signed On 01-01-2025 10:51:32 PDT by Lebron Sierra MD
[2025-01-01 09:01] LABS: BUN Creatinine Ratio 21.1 (6-22); Blood Urea Nitrogen 16 mg/dL (7-17); Calcium 9.5 mg/dL (8.4-10.2); Carbon Dioxide 25 mmol/L (22-32); Chloride 106 mmol/L (98-107); Cholesterol 242 mg/dL (140-199); Estimated Glomerular Filt Rate > 60 mL/min (>60); Glucose 95 mg/dL (70-99); HDL Cholesterol 61 mg/dL (40-60); HEMOLYSIS < 15 (0-50); LDL Cholesterol Calculated 153 mg/dL (<100); Potassium 4.7 mmol/L (3.4-5.1); Sodium 137 mmol/L (137-145); Triglycerides 140 mg/dL (35-150)
[2025-01-01 09:19] LABS: Vitamin D 25 Hydroxy (D3) 24.9 ng/mL (30.0-100.0)
[2025-01-02 05:36] LABS: CRP, High Sensitivity 0.67 mg/L (0.00-3.00)
== END ==
LOC: LAB 07:28 → RESP 07:54
PROVIDERS: PCP Family Medicine; Referring Provider Family Medicine; Visit Provider Family Medicine
DX: E78.2 Mixed hyperlipidemia (principal); E55.9 Vitamin D deficiency, unspecified; R53.83 Other fatigue; R25.2 Cramp and spasm
CPT/HCPCS: 36415; 80048; 80061; 82306; 86140; 93005

== ENCOUNTER 2025-03-12 08:13 | Emergency (ER) | payer MEDICARE, OTHER, SELFPAY ==
[2025-03-12 08:29] VITALS: BP 146/67; PULSE 56; RESP 16; TEMP 36.7; O2SAT 97; BMI 31.7
--- NOTE | 2025-03-12 08:55 | ED.BACK ---
HPI - Back Pain/Injury General Chief Complaint: Back Pain/Injury Stated Complaint: Pain in left hip going down her leg x 6 days Time Seen by Provider: 03/12/25 08:18 History of Present Illness HPI Narrative: 89-year-old female with pain in the left hip and radiating down into her left leg. Primarily anterolateral thigh. She does not really describe the pain well, gradual onset not associated with trauma now continues even after she has Tylenol. No fevers no problems with bowel or bladder function. Has an appointment with her primary care service tomorrow. No history of bleeding ulcers or kidney disease reported. Not having back pain. Related Data Home Medications ?Medication ?Instructions ?Recorded ?Confirmed [vitamin d] PO QDAY ##0 05/21/12 12/31/24 aspirin 81 mg tablet,delayed 81 mg PO DAILY 04/12/18 12/31/24 release (Adult Low Dose Aspirin) ascorbic acid 1,000 mg PO 03/31/20 12/31/24 iw-meowyxnolckz-qvaitssj powder effervescent pack (Emergen-C) mecobalamin (vitamin B12) 1,000 1,000 mcg PO 12/20/22 12/31/24 mcg chewable tablet (B12 Active) magnesium 250 mg tablet 250 mg PO DAILY 07/03/23 12/31/24 Previous Rx's ?Medication ?Instructions ?Recorded levothyroxine 75 mcg tablet 75 mcg PO DAILY #90 tabs 07/22/24 estradiol 0.01% (0.1 mg/gram) 2 g vaginal .COMPLEX vaginal 12/31/24 vaginal cream atrophy #42.5 grams ezetimibe 10 mg tablet 10 mg PO DAILY #90 tabs 03/03/25 Allergies Allergy/AdvReac Type Severity Reaction Status Date / Time pneumococcal vaccine Allergy Intermediate SWELLING Verified 12/31/24 08:09 AND REDNESS AND INJECTION SITE Fkhnops-FXP-WwD Reductase AdvReac Severe Leg cramps Verified 12/31/24 08:09 Inhibitor (VHMCDZG-YCV-FUV REDUCTASE INHIBITOR) Patient History Medical History Bowel habit changes Stress incontinence Hemorrhoids Constipation Abnormal EKG (~2019) Left medial knee pain (11/2018) Hx of malignant neoplasm of parotid gland (Unknown) Vertigo (Unknown) GERD (gastroesophageal reflux disease) (~2011) Hip pain, right (Unknown) Hyperlipemia (Unknown) Hypothyroidism (Unknown) Osteoarthritis (Unknown) Surgical History History of right hip replacement Hx of cholecystectomy (Unknown) Hx of appendectomy (Unknown) Hx of hysterectomy (Unknown) History of salpingoophorectomy (Unknown) 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 Father Stroke Mother Heart attack Sister Stroke Sister No problems noted. Sister No problems noted. Sister No problems noted. Family/Other Cancer Social History Tobacco: How many years used: 40 second hand exposure: No alcohol intake: current substance use type: does not use alcohol intake frequency: 0-2 drinks per day Exam Initial Vital Signs Initial Vital Signs: Vital Signs Temperature 98.0 F 03/12/25 08:29 Pulse Rate 56 L 03/12/25 08:29 Respiratory Rate 16 03/12/25 08:29 Blood Pressure 146/67 H 03/12/25 08:29 Pulse Oximetry 97 03/12/25 08:29 Oxygen Delivery Method Room Air 03/12/25 08:29 vital signs are reviewed Const General: cooperative and No acute distress HENMT Head: normocephalic and atraumatic Mouth: moist mucous membranes Resp Effort & Inspection: normal respiratory effort Back/Spine/Pelvis Back: normal to inspection Skin General: no rashes or lesions noted and warm Neuro General: patient alert, patient oriented x3, moves all extremities and other (Normal motor and sensation in the left lower extremity.) Speech: speech normal Extrem Other: No deformity of the left lower extremity or hip. She tolerates active and passive range of motion of the left hip. Course Orders Ordered: ED Orders 03/12/25 08:54 XR hip w pel LT 2V Stat Discontinued Medications Ibuprofen (Ibuprofen 400 Mg Tablet) 400 mg PO NOW ONE Stop: 03/12/25 08:55 Last Admin: 03/12/25 09:19 Dose: 400 mg Documented By: CTS Vital Signs Vital signs: Vital Signs - 8 hr 03/12/25 08:29 Temperature 98.0 F Pulse Rate 56 L Respiratory Rate 16 Blood Pressure 146/67 H Pulse Oximetry 97 Oxygen Delivery Method Room Air MDM - Back Pain/Injury Imaging Data Left hip: My Impression: Independently reviewed plain films of the left hip and AP pelvis, patient has degenerative arthritis of the left hip, no acute fracture or dislocation. Previous right hip replacement Radiologist's Impression: [address] [address] XRay Report Signed Patient: Nataliia Houser MR#: [id number] : 1935 Acct:[id number] Age/Sex: 89 / F Date of Service: 03/12/25 Loc: ED Accession Number: [id number] Procedure: XR hip w pel LT 2V Ordering Provider: Michael Butler MD PROCEDURE: XR HIP W PEL IF DONE LT 2V INDICATIONS: hip pain TECHNIQUE: AP pelvis with lateral view(s) of the left hip(s). COMPARISON: [facility], , XR HIP W PEL IF DONE RT 2V, 08/24/2021, 15:01. FINDINGS: Bones: No fractures or dislocations. Severe left hip degenerative arthritis. Total right hip arthroplasty. No evidence of hardware failure or loosening. Pelvic ring appears intact. No suspicious bony lesions. Soft tissues: The visualized bowel gas pattern is normal. No suspicious soft tissue calcifications. IMPRESSION: No acute bony abnormality. Severe left hip degenerative arthritis. Dictated by: Wero Pa M.D. on 03/12/2025 at 9:22 Approved by: Wero Pa M.D. on 03/12/2025 at 9:23 [facility] Narrative Medical decision making narrative: 89-year-old female with atraumatic pain in the area of the left hip radiating down into the thigh. Differential diagnosis includes hip pain with fracture felt unlikely given lack of trauma, or lumbar/sacral radiculopathy. No evidence for cauda equina syndrome. I am going to get plain films of her left hip and recommend symptomatic treatment with NSAIDs and acetaminophen assuming those are without fracture or other acute abnormality. Septic arthritis of the hip is considered and felt unlikely based on presentation. I do not plan labs today. Discharge Plan Departure Patient Disposition: Home Clinical Impression: Acute pain of left hip Activity Restrictions/Additional Instructions: X-ray today shows that you have degenerative arthritis in your left hip. It may be the cause of your pain although it is also possible that you have an irritated nerve in your lower back. In either situation I recommend that you try ibuprofen 400 mg 3 times a day with food. Take this on a regular basis for a few days. You can also use acetaminophen (Tylenol). Tylenol dosing can be 650-1000 mg, take it up to every 6 hours keep your total daily dose of Tylenol to no more than 3000 mg. Activity as tolerated. Follow up tomorrow as planned with your primary care provider. If you are having fevers shortness of breath chest pain or other acute symptoms recheck in the emergency department. Prescriptions: No Action aspirin [Adult Low Dose Aspirin] 81 mg tablet,delayed release (DR/EC) 81 mg PO DAILY [vitamin d] PO QDAY Qty: 0 levothyroxine 75 mcg tablet 75 mcg PO DAILY Qty: 90 3RF ezetimibe 10 mg tablet 10 mg PO DAILY Qty: 90 2RF magnesium 250 mg tablet 250 mg PO DAILY Emergen-C 1,000 mg powder effervescent in packet PO mecobalamin (vitamin B12) [B12 Active] 1,000 mcg tablet,chewable 1,000 mcg PO estradiol 0.01 % (0.1 mg/gram) cream 2 g vaginal .COMPLEX Qty: 42.5 5RF Rx Instructions: Use 1 gram twice a week, via applicator Referrals: Isabel Campbell DO [Primary Care Provider, Medical] Stand Alone Forms: Patient Portal/API
[2025-03-12] MEDS: IBUPROFEN 400 MG TABLET PO (09:19)
[2025-03-12 09:41] VITALS: BP 133/60; PULSE 46; O2SAT 97
== END 2025-03-12 09:37 | disposition home or self-care (01) ==
PROVIDERS: Emergency Provider Emergency Medicine; PCP Family Medicine
DX: M25.552 Pain in left hip (principal)
CPT/HCPCS: 73502; 99283

== ENCOUNTER 2025-04-24 10:32 | Emergency (ER) | payer MEDICARE, OTHER, SELFPAY ==
[2025-04-24] VITALS (20 sets, daily range): BP systolic 99–148; BP diastolic 54–65; PULSE 42–56; RESP 12–26; TEMP 36.1; O2SAT 92–99; BMI 32.2
--- NOTE | 2025-04-24 10:46 | DI.RAD.S_ITS ---
PROCEDURE: XR CHEST 1V INDICATIONS: Chest Pain TECHNIQUE: One view of the chest was acquired. COMPARISON: [facility], CR, XR CHEST 1V, 07/24/2024, 15:31. FINDINGS: Surgical changes and devices: None. Lungs and pleura: Lungs are clear. No pleural effusions or pneumothorax. Mediastinum: Mediastinal contours appear normal. Heart size is normal. Bones and chest wall: No suspicious bony lesions. Overlying soft tissues appear unremarkable. IMPRESSION: No acute cardiopulmonary abnormality is seen. Dictated by: Wero Pa M.D. on 04/24/2025 at 11:50 Approved by: Wero Pa M.D. on 04/24/2025 at 11:50
--- NOTE | 2025-04-24 10:46 | EKG_ITS ---
[place] [id number] [place] [id number] Test Date: 2025-04-24 Pat Name: Nataliia Houser Department: [facility] Room: Gender: Female Mortgage Loan Underwriter: ENRIQUE : 1935 Requested By: Order Number: [id number] Reading MD: Trey Houser Measurements Intervals [place] Rate: 50 P: 12 [place]: 202 QRS: -58 QRSD: 138 T: 50 QT: 464 QTc: 423 Interpretive Statements Sinus bradycardia Right bundle branch block Left anterior fascicular block Bifascicular block Minimal voltage criteria for LVH, may be normal variant ( R in aVL ) Septal infarct , age undetermined Electronically Signed On 04-28-2025 16:20:58 PDT by Trey Houser
--- NOTE | 2025-04-24 11:03 | ED.RECABL ---
HPI - Recheck/Abnormal Lab/Rx General Chief Complaint: Recheck/Abnormal Lab/Rx Stated Complaint: sent from , issues with Heart monitor Time Seen by Provider: 04/24/25 11:02 Source: patient Mode of arrival: Ambulatory History of Present Illness HPI narrative: PMHx significant for bradycardia, GERD, hypothyroidism, hyperlipidemia Pt presents to the ER after being called by their cardioloigst regarding recent Zio patch results. The patient had worn a monitor for two weeks, which was removed last week. The results showed that the patient's heart had stopped or was very slow for four seconds on one occasion. The patient reports no symptoms related to this event and did not press the event button on the monitor. They state they have always had a low heart rate. Currently, the patient denies feeling ill, experiencing chest pain, or having any new shortness of breath. No palpitations. The patient denies any abdominal pain, nausea, or vomiting. They report consuming about one alcoholic drink a night, but not every night, and deny use of recreational drugs. The patient is under the care of a electrician substation supervisor, Dr. Dawkins. When questioned about past cardiac history, the patient states they were unaware of any previous heart attacks, though their doctor had mentioned it looked like they might have had one in the past. The patient denies a history of congestive heart failure, asthma, or other lung issues. They report being on thyroid medication. Related Data Home Medications ?Medication ?Instructions ?Recorded ?Confirmed [vitamin d] PO QDAY ##0 05/21/12 04/23/25 aspirin 81 mg tablet,delayed 81 mg PO DAILY 04/12/18 04/23/25 release (Adult Low Dose Aspirin) ascorbic acid 1,000 mg PO 03/31/20 04/23/25 ya-fhrjzcoiybkb-twszjfke powder effervescent pack (Emergen-C) mecobalamin (vitamin B12) 1,000 1,000 mcg PO 12/20/22 04/23/25 mcg chewable tablet (B12 Active) magnesium 250 mg tablet 250 mg PO DAILY 07/03/23 04/23/25 Previous Rx's ?Medication ?Instructions ?Recorded levothyroxine 75 mcg tablet 75 mcg PO DAILY #90 tabs 07/22/24 estradiol 0.01% (0.1 mg/gram) 2 g vaginal .COMPLEX vaginal 12/31/24 vaginal cream atrophy #42.5 grams ezetimibe 10 mg tablet 10 mg PO DAILY #90 tabs 03/03/25 Allergies Allergy/AdvReac Type Severity Reaction Status Date / Time pneumococcal vaccine Allergy Intermediate SWELLING Verified 04/24/25 10:39 AND REDNESS AND INJECTION SITE Bowiyyr-TZA-UfD Reductase AdvReac Severe Leg cramps Verified 04/24/25 10:39 Inhibitor ([id number] REDUCTASE INHIBITOR) Patient History Medical History Bowel habit changes Stress incontinence Hemorrhoids Constipation Abnormal EKG (~2019) Left medial knee pain (11/2018) Hx of malignant neoplasm of parotid gland (Unknown) Vertigo (Unknown) GERD (gastroesophageal reflux disease) (~2011) Hip pain, right (Unknown) Hyperlipemia (Unknown) Hypothyroidism (Unknown) Osteoarthritis (Unknown) Surgical History History of right hip replacement Hx of cholecystectomy (Unknown) Hx of appendectomy (Unknown) Hx of hysterectomy (Unknown) History of salpingoophorectomy (Unknown) 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 Father Stroke Mother Heart attack Sister Stroke Sister No problems noted. Sister No problems noted. Sister No problems noted. Family/Other Cancer Social History Smoking Status: Unknown if ever smoked Tobacco: How many years used: 40 second hand exposure: No alcohol intake: current substance use type: does not use Smoking Status: Unknown if ever smoked alcohol intake frequency: 0-2 drinks per day Exam Narrative Exam Narrative: VS as noted above Focused physical exam as follows: General: Well developed, well nourished, no acute distress HEENT: pink palpebral conjunctiva, anicteric sclera, TAHIR, moist mucous membranes, no JVD, no cervical lymphadenopathy Lungs: no respiratory distress, clear to auscultation without wheezes or crackles; equal breath sounds Heart: bradycardia, regular rhythm, no appreciable murmurs Abdomen: soft, nontender, no rebound or rigidity Musculoskeletal: no gross deformities with full ROM in all extremities, no pedal edema Skin: pink, warm; no rashes Neuro: ?AAOx3, GCS 15, nonfocal exam Psyche: no SI/HI, normal affect Initial Vital Signs Initial Vital Signs: Vital Signs Temperature 97.0 F L 04/24/25 10:35 Pulse Rate 54 L 04/24/25 10:35 Respiratory Rate 14 04/24/25 10:35 Blood Pressure 133/63 04/24/25 10:35 Pulse Oximetry 98 04/24/25 10:35 Oxygen Delivery Method Room Air 04/24/25 10:35 Course Orders Ordered: Discontinued Medications Aspirin (Aspirin 81 Mg Chew Tab) 324 mg PO NOW ONE Stop: 04/24/25 10:47 Vital Signs Vital signs: Vital Signs - 8 hr 04/24/25 10:35 04/24/25 10:53 04/24/25 10:54 Temperature 97.0 F L Pulse Rate 54 L 55 L 54 L Respiratory Rate 14 Blood Pressure 133/63 Pulse Oximetry 98 97 96 Oxygen Delivery Method Room Air 04/24/25 10:54 04/24/25 11:00 04/24/25 11:01 Temperature Pulse Rate 54 L Respiratory Rate Blood Pressure 148/65 H 148/63 H Pulse Oximetry 97 Oxygen Delivery Method 04/24/25 11:01 04/24/25 11:30 04/24/25 11:31 Temperature Pulse Rate 56 L 53 L 49 L Respiratory Rate Blood Pressure Pulse Oximetry 96 94 94 Oxygen Delivery Method 04/24/25 11:31 04/24/25 12:00 04/24/25 12:01 Temperature Pulse Rate 45 L Respiratory Rate 24 Blood Pressure 127/60 121/56 L Pulse Oximetry 92 Oxygen Delivery Method 04/24/25 12:01 04/24/25 12:30 04/24/25 12:30 Temperature Pulse Rate 45 L 45 L Respiratory Rate 20 20 Blood Pressure 123/57 L Pulse Oximetry 94 94 Oxygen Delivery Method 04/24/25 13:06 04/24/25 13:08 04/24/25 13:08 Temperature Pulse Rate 54 L 42 L Respiratory Rate Blood Pressure 118/56 L Pulse Oximetry 97 Oxygen Delivery Method 04/24/25 13:30 04/24/25 13:31 04/24/25 13:31 Temperature Pulse Rate 47 L 47 L Respiratory Rate 26 H 21 Blood Pressure 119/57 L Pulse Oximetry 95 95 Oxygen Delivery Method 04/24/25 14:00 04/24/25 14:01 04/24/25 14:01 Temperature Pulse Rate 43 L 48 L Respiratory Rate 24 23 Blood Pressure 99/54 L Pulse Oximetry 97 96 Oxygen Delivery Method 04/24/25 14:30 04/24/25 14:31 04/24/25 14:31 Temperature Pulse Rate 45 L 43 L Respiratory Rate 12 12 Blood Pressure 116/57 L Pulse Oximetry 97 96 Oxygen Delivery Method 04/24/25 15:00 Temperature Pulse Rate 47 L Respiratory Rate 21 Blood Pressure Pulse Oximetry Oxygen Delivery Method MDM - Recheck/Abnormal Lab/Rx Lab Data 04/24/25 11:17 04/24/25 11:17 Labs: Lab Results 04/24/25 Range/Units 11:17 WBC 7.4 (4.5-11.0) X10^3/uL RBC 4.48 (4.0-5.2) X10^6/uL Hgb 13.4 (12.0-16.0) g/dL Hct 40.3 (36-46) % MCV 90.0 (80-100) fL MCH 29.9 (26-34) PG MCHC 33.3 (30-36) % RDW 13.9 (11.6-14.8) % Plt Count 263 (150-400) X10^3/uL Neut % (Auto) 74.0 (50-75) % Lymph % (Auto) 15.8 L (25-40) % Sully % (Auto) 6.7 (3-14) % Eos % (Auto) 2.5 (2-4) % Baso % (Auto) 1.0 (0-2) % Neut # (Auto) 5500 (6946-3295) /uL Lymph # (Auto) 1200 (5032-9828) /uL Sully # (Auto) 500 (0-900) /uL Eos # (Auto) 200 (0-450) /uL Baso # (Auto) 100 (0-100) /uL PT 11.1 (9.4-12.5) SECONDS INR 1.0 (0.9-1.3) APTT 30 (25.1-36.5) SECONDS Sodium 137 (137-145) mmol/L Potassium 4.3 (3.4-5.1) mmol/L Chloride 105 (98-107) mmol/L Carbon Dioxide 26 (22-32) mmol/L BUN 17 (7-17) mg/dL Creatinine 0.73 (0.52-1.04) mg/dL Estimated GFR > 60 (>60) mL/min BUN/Creatinine Ratio 23.3 H (6-22) Glucose 98 (70-99) mg/dL Calcium 9.2 (8.4-10.2) mg/dL Magnesium 2.2 (1.6-2.3) mg/dL Total Bilirubin 0.4 (0.2-1.3) mg/dL AST 25 (14-36) IU/L ALT 19 (<35) IU/L Alkaline Phosphatase 59 (38-126) U/L Total Creatine Kinase 57 (30-135) U/L Troponin I < 0.012 (0.01-0.034) ng/mL NT-Pro-B Natriuret Pep 214 (<450) pg/mL Total Protein 6.6 (6.3-8.2) g/dL Albumin 4.0 (3.5-5.0) g/dL Globulin 2.6 (1.7-4.1) g/dL Albumin/Globulin Ratio 1.5 (1.0-2.8) Lipase 80 (23-300) U/L TSH 1.04 (0.47-4.68) uIU/mL MDM Narrative Medical decision making narrative: HPI, PMHx, PSHx, Medication list, Allergies, ROS and Focused exam were reviewed above. ?Differential diagnosis as noted below. ?Social determinants affecting care considered. ?All of these were taken into consideration warranting above listed work up. ?Consultations as deemed necessary were documented below (if listed). Labs (if ordered and noted) were independently reviewed by me. Imaging studies (if ordered and noted) were independently reviewed by me EKG (if noted) was independently reviewed by me External documents (if reviewed) are documented above Initial VS noted above. ? Differential diagnosis considered include (but not limited to) the following: cardiac dysrhythmia, electrolyte imbalance, liver or kidney failure, hypo/hyperthyroidism, ACS, CHF, adverse effect of illicit drug/ETOH Pt interviewed and examined. Asymptomatic. Kept on telemetry while awaiting cardiac work up. 1100 - Bedside EKG showed sinus justin @ 50, RBBB, LAFB; QTc 423; no STTW changes Labs reviewed - unremarkable. No significant bradycardia noted. Zio patch results reviewed (faxed over to us): Sick sinus rhythm with significant pause (longest was 3.8 seconds). Paged [facility] cardiology to discuss case. Dr. Burden called back after 2 pages - he advised that if pt was asymptomatic, no emergent transfer or pacemaker placement is needed. He will notify their office to arrange for urgent consulation with their EP provider. Pt should return to the ER if with symptoms and is advised not to drive. Discussed plan of care. Stable for discharge. Discharge Plan Departure Patient Disposition: Home Clinical Impression: Bradycardia Activity Restrictions/Additional Instructions: After discussing your case with Dr. Burden (electrician substation supervisor), he advised follow up with Dr. Dawkins and their catering and events manager for your abnormal heart monitor results. Continue all current meds. Return to the ER if with lightheadedness, passing out, chest pain or shortness of breath. Do not drive. Prescriptions: No Action aspirin [Adult Low Dose Aspirin] 81 mg tablet,delayed release (DR/EC) 81 mg PO DAILY [vitamin d] PO QDAY Qty: 0 levothyroxine 75 mcg tablet 75 mcg PO DAILY Qty: 90 3RF ezetimibe 10 mg tablet 10 mg PO DAILY Qty: 90 2RF magnesium 250 mg tablet 250 mg PO DAILY Emergen-C 1,000 mg powder effervescent in packet PO mecobalamin (vitamin B12) [B12 Active] 1,000 mcg tablet,chewable 1,000 mcg PO estradiol 0.01 % (0.1 mg/gram) cream 2 g vaginal .COMPLEX Qty: 42.5 5RF Rx Instructions: Use 1 gram twice a week, via applicator Referrals: Isabel Campbell DO [Primary Care Provider, Medical] Stand Alone Forms: Patient Portal/API
[2025-04-24 11:24] LABS: Add Manual Diff / Slide Review NO; Hematocrit 40.3 % (36-46); Hemoglobin 13.4 g/dL (12.0-16.0); Lymphocytes Absolute Auto 1200 /uL (1100-4500); Mean Corpuscular HGB Conc 33.3 % (30-36); Mean Corpuscular Hemoglobin 29.9 PG (26-34); Mean Corpuscular Volume 90.0 fL (80-100); Platelet Count 263 X10^3/uL (150-400)
[2025-04-24 11:32] LABS: INR 1.0 (0.9-1.3); Prothrombin Time 11.1 SECONDS (9.4-12.5)
[2025-04-24 11:35] LABS: PTT Partial Thromboplastin Tim 30 SECONDS (25.1-36.5)
[2025-04-24 11:42] LABS: Alanine Aminotransferase 19 IU/L (<35); Albumin 4.0 g/dL (3.5-5.0); Albumin Globulin Ratio 1.5 (1.0-2.8); Alkaline Phosphatase 59 U/L (38-126); Blood Urea Nitrogen 17 mg/dL (7-17); Calcium 9.2 mg/dL (8.4-10.2); Carbon Dioxide 26 mmol/L (22-32); Chloride 105 mmol/L (98-107); Creatine Kinase 57 U/L (30-135); Estimated Glomerular Filt Rate > 60 mL/min (>60); Globulin 2.6 g/dL (1.7-4.1); Glucose 98 mg/dL (70-99); HEMOLYSIS < 15 (0-50); Lipase 80 U/L (23-300); Magnesium 2.2 mg/dL (1.6-2.3); Potassium 4.3 mmol/L (3.4-5.1); Sodium 137 mmol/L (137-145); Total Protein 6.6 g/dL (6.3-8.2)
[2025-04-24 11:53] LABS: NT-proBNP (BNP-Adult 18+) 214 pg/mL (<450); Troponin I < 0.012 ng/mL (0.01-0.034)
[2025-04-24 16:05] LABS: Thyroid Stimulating Hormone 1.04 uIU/mL (0.47-4.68)
== END 2025-04-24 16:18 | disposition home or self-care (01) ==
PROVIDERS: Emergency Provider Emergency Medicine; PCP Family Medicine
DX: R00.1 Bradycardia, unspecified (principal)
CPT/HCPCS: 36415; 71045; 80053; 82550; 83690; 83735; 83880; 84443; 84484; 85025; 85610; 85730; 93005; 99283; 99284

== ENCOUNTER → 2025-04-29 14:19 | Outpatient (CLI) | payer MEDICARE, OTHER, SELFPAY ==
--- NOTE | 2025-05-01 17:35 | DI.NM.S_ITS ---
DATE OF SERVICE: 04/29/2025 PHARMACOLOGICAL PERFUSION STUDY INDICATIONS: Progressively getting fatigue with underlying hyperlipidemia, bradycardia, right bundle branch block, left anterior fascicular block. RADIOPHARMACEUTICAL: 27.4 millicurie technetium-99m Myoview IV was injected at stress and 25.8 mCi technetium-99m Myoview IV was injected at rest. CARDIAC STRESS: The patient underwent IV Lexiscan perfusion study under the supervision of an attending staff using standard protocol. The patient remained hemodynamically stable. Baseline rhythm was sinus bradycardia, heart rate 47 with right bundle branch block and left anterior fascicular block. With Lexiscan, heart rate went up to 60s with sinus rhythm without any ischemic changes or other arrhythmias. No chest pain. Resting blood pressure 140/70. RAW DATA: Breast shadow was seen. GATED STUDY: Stress LV ejection fraction is 74% without any obvious wall motion abnormalities. Resting end-diastolic volume 80 mL. TID ratio 1.05, which is within normal limits. MYOCARDIAL PERFUSION SCAN: The patient has normal myocardial perfusion study. Summed stress and summed rest score zero. CONCLUSION: This is a normal myocardial perfusion study without any obvious ischemia infarction. Baseline rhythm sinus bradycardia with heart rate 47 with right bundle branch block and left anterior fascicular block. Preserved LV function. As far as perfusion scan is concerned, this is a low-risk myocardial perfusion scan. Consider possibility of sick sinus. Nataliia Houser - CHAUNCEY/bernardo/SOHA doc#: [id number]/job#: [id number] dd: 05/01/2025 17:13:00 dt: 05/01/2025 17:26:00 DICTATING MD/COPIES TO: Gil Zamudio MD COPIES MNE: GAYLA;
== END ==
PROVIDERS: PCP Family Medicine; Referring Provider Family Medicine; Visit Provider Internal Medicine
DX: I45.2 Bifascicular block (principal); R94.31 Abnormal electrocardiogram [ECG] [EKG]; R53.83 Other fatigue; R00.1 Bradycardia, unspecified
CPT/HCPCS: 78452; 93017; A9502; J2785

== ENCOUNTER → 2025-05-01 13:50 | Outpatient (CLI) | payer MEDICARE, OTHER, SELFPAY ==
--- NOTE | 2025-05-01 13:51 | DI.ECHO.S_ITS ---
[facility] : : [address] : : [place] : : [id number] : : Phone: [phone] Echocardiogram Report + + :Name: CHAPIN GIBBS Study Date: 05/01/2025 Height: 63 in : :[facility] ReadingLocation: Weight: 185 lb : : Gender: Female BSA: 1.9 m2 : :: 1935 Age: 89 yrs BP: 158/75 mmHg: :Reason For Study: ABNORMAL EKG : :Ordering Physician: PRATIK DAWKINS Performed By: Dionisio Cunningham : :Referring: PRATIK DAWKINS : + + Interpretation Summary - The left ventricular contractility is normal. Estimated ejection fraction is greater than 60% with no segmental wall motion abnormalities. Mild asymmetrical septal hypertrophy without obstruction. Normal diastolic function. - The right ventricular contractility is normal. - All cardiac chambers are of normal size. - Trace to mild aortic insufficiency. - Mild pulmonic insufficiency. - No obvious intracardiac shunts. - No obvious intracardiac masses nor thrombi. - No hemodynamically significant pericardial effusion. Conclusion: Normal biventricular function with trace to mild valvular insufficiencies. When compared with previous echocardiogram, the degree of pulmonic insufficiency has decreased. There is also mild asymmetrical septal hypertrophy present. Procedure: A two-dimensional transthoracic echocardiogram with color flow and Doppler was performed. The study quality was technically good. Comparison is made with the echocardiogram of 04/20/2020. The patient was in normal sinus rhythm during the exam. Left Ventricle: The left ventricle is normal in size. Left ventricular wall thickness is borderline increased. Proximal septal thickening is noted. There is no ventricular septal defect visualized. The ejection fraction is estimated to be 60-65%. There are no focal wall motion abnormalities. Normal diastolic function. Right Ventricle: The right ventricle is normal in size and function. Atria: The left atrial size is normal. Right atrial size is normal. There is no Doppler evidence for an interatrial shunt. Mitral Valve: The mitral valve leaflets are mildly calcified. The mitral valve leaflets appear mildly thickened. There is trace mitral regurgitation. Aortic Valve: The aortic valve is trileaflet. The aortic valve is mildly calcified. The aortic valve opens well. There is mild aortic regurgitation. Tricuspid Valve: The tricuspid valve is normal in structure and function. There is trace tricuspid regurgitation. Pulmonic Valve: The pulmonic valve is not well visualized. There is mild pulmonic regurgitation. Great Vessels: The aortic root is normal size. The dimensions of the ascending aorta are normal. The pulmonary is not well visualized. The inferior vena cava was not well visualized. Pericardium/ Pleura There is no pericardial effusion. There is no pleural effusion. MMode/2D Measurements & Calculations LVIDd: 4.5 cm LVOT diam: 1.9 cm LVIDs: 2.9 cm Ao root diam: 3.6 cm FS: 35.3 % asc Aorta Diam: 3.2 cm EPSS: 0.36 cm IVSd: 1.1 cm LVPWd: 1.0 cm LV le. diameter/BSA (cm/m^2): 2.4 LV sys. diameter/BSA (cm/m^2): 1.5 LA A2 area: 17.0 cm2 RA long axis: 3.6 cm LA A4 area: 18.7 cm2 RA area: 10.1 cm2 LA length (vol): 5.1 cm RA vol: 24.2 ml LA vol: 52.7 ml RA : 12.9 ml/m2 LA vol index: 28.2 ml/m2 RVD1 (basal): 3.2 cm RVD2 (mid): 2.7 cm TAPSE: 2.8 cm Doppler Measurements & Calculations Ao V2 max: 185.1 cm/sec LVOT Max Meek: 129.6 cm/sec Ao V2 mean: 138.5 cm/sec LV V1 max P.7 mmHg Ao max P.7 mmHg LV V1 VTI: 35.3 cm Ao mean P.2 mmHg HIEU(I,D): 2.2 cm2 Ao V2 VTI: 46.9 cm HIEU(V,D): 2.0 cm2 sev ratio: 0.75 HIEU indexed to BSA (cm^2/m^2): 1.2 AI P1/2t: 652.7 msec AI dec slope: 174.5 cm/sec2 MV E max meek: 60.4 cm/sec TR max meek: 248.5 cm/sec MV A max meek: 66.2 cm/sec TR max P.7 mmHg MV E/A: 0.91 PA V2 max: 105.8 cm/sec Med Peak E' Meek: 4.4 cm/sec PA V2 mean: 76.0 cm/sec E/E' med: 13.7 PA mean P.5 mmHg Lat Peak E' Meek: 4.7 cm/sec PA pr(Accel): 46.5 mmHg E/E' lat: 12.9 E/e' average: 13.3 MV dec time: 0.34 sec SVLVOT): 101.4 ml Reading Physician:DEBORAH
== END ==
LOC: ECHO 13:51
PROVIDERS: PCP Family Medicine; Referring Provider Internal Medicine; Visit Provider Internal Medicine
DX: I35.1 Nonrheumatic aortic (valve) insufficiency (principal); I37.1 Nonrheumatic pulmonary valve insufficiency; R94.31 Abnormal electrocardiogram [ECG] [EKG]
CPT/HCPCS: 93306

== ENCOUNTER → 2025-05-30 11:55 | Outpatient (CLI) | payer MEDICARE, OTHER, SELFPAY ==
[2025-05-30 13:34] LABS: Add Manual Diff / Slide Review NO; Hematocrit 39.4 % (36-46); Hemoglobin 13.3 g/dL (12.0-16.0); Lymphocytes Absolute Auto 1200 /uL (1100-4500); Mean Corpuscular HGB Conc 33.7 % (30-36); Mean Corpuscular Hemoglobin 29.9 PG (26-34); Mean Corpuscular Volume 88.6 fL (80-100); Platelet Count 250 X10^3/uL (150-400)
[2025-05-30 14:12] LABS: Blood Urea Nitrogen 16 mg/dL (7-17); Calcium 9.6 mg/dL (8.4-10.2); Carbon Dioxide 26 mmol/L (22-32); Chloride 103 mmol/L (98-107); Estimated Glomerular Filt Rate > 60 mL/min (>60); Glucose 96 mg/dL (70-99); HEMOLYSIS < 15 (0-50); Potassium 4.5 mmol/L (3.4-5.1); Sodium 136 mmol/L (137-145)
== END ==
PROVIDERS: PCP Family Medicine; Referring Provider Internal Medicine Cardiovascular Disease; Visit Provider Internal Medicine Cardiovascular Disease
DX: I49.5 Sick sinus syndrome (principal)
CPT/HCPCS: 36415; 80048; 85025

== ENCOUNTER → 2025-06-27 14:47 | Outpatient (CLI) | payer MEDICARE, OTHER, SELFPAY ==
--- NOTE | 2025-06-27 14:49 | DI.RAD.S_ITS ---
PROCEDURE: XR DEXA AXIAL SKELETON
== END ==
LOC: RAD 14:48
PROVIDERS: PCP Family Medicine; Referring Provider Orthopaedic Surgery Adult Reconstructive Orthopaedic Surgery; Visit Provider Orthopaedic Surgery Adult Reconstructive Orthopaedic Surgery
DX: M81.0 Age-related osteoporosis without current pathological fracture (principal)
CPT/HCPCS: 77080

== ENCOUNTER → 2025-07-10 07:22 | Outpatient (CLI) | payer MEDICARE, OTHER, SELFPAY ==
[2025-07-10 08:50] LABS: Cholesterol 241 mg/dL (140-199); HDL Cholesterol 68 mg/dL (40-60); Triglycerides 129 mg/dL (35-150)
== END ==
PROVIDERS: PCP Family Medicine; Referring Provider Family Medicine; Visit Provider Internal Medicine
DX: E78.5 Hyperlipidemia, unspecified (principal)
CPT/HCPCS: 36415; 80061

== ENCOUNTER 2025-07-28 18:48 | Emergency (ER) | payer MEDICARE, OTHER, SELFPAY ==
[2025-07-28] VITALS (10 sets, daily range): BP systolic 117–154; BP diastolic 56–85; PULSE 59–60; RESP 12–25; TEMP 36.6; O2SAT 92–99; BMI 31.8
--- NOTE | 2025-07-28 19:02 | DI.RAD.S_ITS ---
PROCEDURE: XR CHEST 1V INDICATIONS: Chest Pain TECHNIQUE: One view of the chest was acquired. COMPARISON: [facility], CR, XR CHEST 1V, 04/24/2025, 10:55. [facility], CR, XR CHEST 1V, 07/24/2024, 15:31. FINDINGS: Surgical changes and devices: Interval placement of dual lead left chest cardiac support device. Lungs and pleura: Lungs are clear. No pleural effusions or pneumothorax. Mediastinum: The thoracic aorta is ectatic with atherosclerotic calcifications.. Heart size is normal. Bones and chest wall: No suspicious bony lesions. Overlying soft tissues appear unremarkable. IMPRESSION: No acute cardiopulmonary abnormality is seen. Dictated by: Anirudh Lau M.D. on 07/28/2025 at 19:53 Approved by: Anirudh Lau M.D. on 07/28/2025 at 19:54
--- NOTE | 2025-07-28 19:02 | EKG_ITS ---
[facility] [address] [place] [address] Test Date: 2025-07-28 Pat Name: Nataliia Houser Department: [facility] Room: Gender: Female Bread Wrapper: : 1935 Requested By: Order Number: [id number] Reading MD: Lebron Sierra MD Measurements Intervals [place] Rate: 60 P: [place]: 254 QRS: -64 QRSD: 144 T: 37 QT: 464 QTc: 464 Interpretive Statements Atrial-paced rhythm with prolonged AV conduction Right bundle branch block Left anterior fascicular block Bifascicular block Minimal voltage criteria for LVH, may be normal variant ( R in aVL ) Septal infarct , age undetermined Electronically Signed On 07-29-2025 7:15:43 PST by Lebron Sierra MD
[2025-07-28 19:11] LABS: INR 0.9 (0.9-1.3); Prothrombin Time 10.2 SECONDS (9.4-12.5)
--- NOTE | 2025-07-28 19:13 | EKG_ITS ---
[facility] [address] [place] [address] Test Date: 2025-07-28 Pat Name: Nataliia Houser Department: [facility] Room: Gender: Female System Trainer: : 1935 Requested By: Order Number: [id number] Reading MD: Lebron Sierra MD Measurements Intervals [place] Rate: 60 P: [place]: 246 QRS: -61 QRSD: 148 T: 28 QT: 464 QTc: 464 Interpretive Statements Atrial-paced rhythm with prolonged AV conduction Right bundle branch block Left anterior fascicular block Bifascicular block Minimal voltage criteria for LVH, may be normal variant ( R in aVL ) Septal infarct , age undetermined NO SIGNIFICANT CHANGE FROM PRIOR TRACING Electronically Signed On 07-29-2025 7:15:51 PST by Lebron Sierra MD
[2025-07-28 19:14] LABS: PTT Partial Thromboplastin Tim 31 SECONDS (25.1-36.5)
[2025-07-28 19:16] LABS: Alanine Aminotransferase 21 IU/L (<35); Albumin 4.4 g/dL (3.5-5.0); Albumin Globulin Ratio 1.5 (1.0-2.8); Alkaline Phosphatase 73 U/L (38-126); Blood Urea Nitrogen 18 mg/dL (7-17); Calcium 9.2 mg/dL (8.4-10.2); Carbon Dioxide 26 mmol/L (22-32); Chloride 107 mmol/L (98-107); Creatine Kinase 79 U/L (30-135); Estimated Glomerular Filt Rate > 60 mL/min (>60); Globulin 3.0 g/dL (1.7-4.1); Glucose 109 mg/dL (70-99); HEMOLYSIS 19 (0-50); Lipase 102 U/L (23-300); Magnesium 2.3 mg/dL (1.6-2.3); Potassium 3.5 mmol/L (3.4-5.1); Sodium 141 mmol/L (137-145); Total Protein 7.4 g/dL (6.3-8.2)
[2025-07-28 19:18] LABS: Add Manual Diff / Slide Review NO; Hematocrit 39.4 % (36-46); Hemoglobin 13.4 g/dL (12.0-16.0); Lymphocytes Absolute Auto 2100 /uL (1100-4500); Mean Corpuscular HGB Conc 34.1 % (30-36); Mean Corpuscular Hemoglobin 30.1 PG (26-34); Mean Corpuscular Volume 88.3 fL (80-100); Platelet Count 262 X10^3/uL (150-400)
--- NOTE | 2025-07-28 19:23 | ED.CHESTPAIN ---
HPI - Chest Pain General Chief Complaint: Chest Pain Stated Complaint: Chest pain Time Seen by Provider: 07/28/25 19:09 Source: EMS Mode of arrival: EMS History of Present Illness HPI narrative: This is an 89-year-old white female with a history of bradycardia status post pacemaker insertion also GERD and hyperlipidemia who presents to the emergency room with left-sided chest pain that began today pain radiates to the back described as sharp worse with movement or deep inspiration there is no accompanied shortness of breath nausea vomiting or diaphoresis no abdominal pain. Related Data Home Medications ?Medication ?Instructions ?Recorded ?Confirmed [vitamin d] PO QDAY ##0 05/21/12 06/24/25 aspirin 81 mg tablet,delayed 81 mg PO DAILY 04/12/18 06/24/25 release (Adult Low Dose Aspirin) ascorbic acid 1,000 mg PO 03/31/20 06/24/25 [id number] powder effervescent pack (Emergen-C) mecobalamin (vitamin B12) 1,000 1,000 mcg PO 12/20/22 06/24/25 mcg chewable tablet (B12 Active) magnesium 250 mg tablet 250 mg PO DAILY 07/03/23 06/24/25 Previous Rx's ?Medication ?Instructions ?Recorded estradiol 0.01% (0.1 mg/gram) 2 g vaginal .COMPLEX vaginal 12/31/24 vaginal cream atrophy #42.5 grams ezetimibe 10 mg tablet 10 mg PO DAILY #90 tabs 03/03/25 levothyroxine 75 mcg tablet 75 mcg PO DAILY #90 tabs 07/11/25 prednisone 20 mg tablet 20 mg PO DAILY #5 tabs 07/28/25 Allergies Allergy/AdvReac Type Severity Reaction Status Date / Time pneumococcal vaccine Allergy Intermediate SWELLING Verified 04/24/25 10:39 AND REDNESS AND INJECTION SITE [id number] Reductase AdvReac Severe Leg cramps Verified 04/24/25 10:39 Inhibitor ([id number] REDUCTASE INHIBITOR) Review of Systems Review of Systems Narrative: GENERAL: Denies chills, fatigue, malaise, fever, sweats. HEENT: Denies sinus pain, ear pain, sore throat, difficulty swallowing, dizziness. RESPIRATORY: Denies dyspnea, cough, wheezing, hemoptysis, sputum. CARDIOVASCULAR: See HPI GASTROINTESTINAL: Denies nausea, vomiting, abdominal pain, diarrhea, constipation, melena. : Denies dysuria, frequency, incontinence, hematuria, urinary retention. MUSCULOSKELETAL: denies weakness, joint pain, or bony pain SKIN: Denies rash, skin lesions, or other NEUROLOGIC: Denies weakness, headache, numbness, change in speech, confusion, seizures, incoordination. PSYCHIATRIC: No concerning psychosocial issues. 12 point review of systems is negative except for those stated above Patient History Medical History (Updated 07/28/25 @ 22:13 by Beau Mendoza MD) Bowel habit changes Stress incontinence Hemorrhoids Constipation Abnormal EKG (~2019) Left medial knee pain (11/2018) Hx of malignant neoplasm of parotid gland (Unknown) Vertigo (Unknown) GERD (gastroesophageal reflux disease) (~2011) Hip pain, right (Unknown) Hyperlipemia (Unknown) Hypothyroidism (Unknown) Osteoarthritis (Unknown) Surgical History (Updated 06/24/25 @ 12:04 by Santhosh Salazar MD) Status post left partial knee replacement History of right hip replacement Hx of cholecystectomy (Unknown) Hx of appendectomy (Unknown) Hx of hysterectomy (Unknown) History of salpingoophorectomy (Unknown) 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 Father Stroke Mother Heart attack Sister Stroke Sister No problems noted. Sister No problems noted. Sister No problems noted. Family/Other Cancer Social History Tobacco: How many years used: 40 second hand exposure: No alcohol intake: current substance use type: does not use alcohol intake frequency: 0-2 drinks per day Exam Narrative Exam Narrative: GENERAL: [] year old patient appears stated age. Well-developed patient, in mild distress. HEAD: Atraumatic. Normocephalic. EYES: Pupils equal round and reactive. Extraocular motions intact. No scleral icterus. No injection or drainage. ENT: Nose without bleeding, purulent drainage. Throat without erythema, tonsillar hypertrophy or exudate. Airway patent. NECK: Trachea midline. Non tender Chest: There is reproducible left-sided costochondral tenderness CARDIOVASCULAR: Regular rate and rhythm without murmurs, gallops, or rubs. RESPIRATORY: Clear to auscultation. Breath sounds equal bilaterally. No wheezes, rales, or rhonchi. GASTROINTESTINAL: Abdomen soft, non-tender, nondistended. EXTREMITIES: No edema or joint tenderness. BACK: Nontender without deformity or crepitance. No flank tenderness. NEURO: AOx3. SKIN: No rash or erythema of visible areas Initial Vital Signs Initial Vital Signs: Vital Signs Temperature 98 F 07/28/25 18:53 Pulse Rate 60 07/28/25 18:53 Respiratory Rate 12 07/28/25 18:53 Blood Pressure 143/74 H 07/28/25 18:53 Pulse Oximetry 99 07/28/25 18:53 Oxygen Delivery Method Room Air 07/28/25 18:53 Course Orders Ordered: ED Orders 07/28/25 18:50 Complete Blood Count AUTO DIFF Stat Comprehensive Metabolic Panel Stat Lipase Stat Magnesium Stat NT-proBNP (BNP-Adult 18+) Stat PTT Partial Thromboplastin Vega Stat Prothrombin Time INR Stat Troponin & CK Cardiac Panel Stat 07/28/25 19:02 XR chest 1V Stat EKG-12 Lead Stat 07/28/25 21:00 Troponin I Stat Discontinued Medications Aspirin (Aspirin 81 Mg Chew Tab) 324 mg PO NOW ONE Stop: 07/28/25 19:02 Last Admin: 07/28/25 19:05 Dose: Not Given Documented By: RB Vital Signs Vital signs: Vital Signs - 8 hr 07/28/25 18:53 07/28/25 18:53 07/28/25 18:56 Temperature 98 F Pulse Rate 60 60 Respiratory Rate 12 Blood Pressure 143/74 H 143/74 H Pulse Oximetry 99 95 Oxygen Delivery Method Room Air 07/28/25 18:56 07/28/25 19:00 07/28/25 19:00 Temperature Pulse Rate 60 60 Respiratory Rate 25 H 16 Blood Pressure 122/71 Pulse Oximetry 93 95 Oxygen Delivery Method MDM - Chest Pain Lab Data 07/28/25 18:50 07/28/25 18:50 Labs: Lab Results 07/28/25 07/28/25 Range/Units 18:50 21:00 WBC 8.1 (4.5-11.0) X10^3/uL RBC 4.46 (4.0-5.2) X10^6/uL Hgb 13.4 (12.0-16.0) g/dL Hct 39.4 (36-46) % MCV 88.3 (80-100) fL MCH 30.1 (26-34) PG MCHC 34.1 (30-36) % RDW 14.0 (11.6-14.8) % Plt Count 262 (150-400) X10^3/uL Neut % (Auto) 63.1 (50-75) % Lymph % (Auto) 25.9 (25-40) % [place] % (Auto) 7.4 (3-14) % Eos % (Auto) 2.9 (2-4) % Baso % (Auto) 0.7 (0-2) % Neut # (Auto) 5100 (1140-2379) /uL Lymph # (Auto) 2100 (2430-9758) /uL [place] # (Auto) 600 (0-900) /uL Eos # (Auto) 200 (0-450) /uL Baso # (Auto) 100 (0-100) /uL PT 10.2 (9.4-12.5) SECONDS INR 0.9 (0.9-1.3) APTT 31 (25.1-36.5) SECONDS Sodium 141 (137-145) mmol/L Potassium 3.5 (3.4-5.1) mmol/L Chloride 107 (98-107) mmol/L Carbon Dioxide 26 (22-32) mmol/L BUN 18 H (7-17) mg/dL Creatinine 0.78 (0.52-1.04) mg/dL Estimated GFR > 60 (>60) mL/min BUN/Creatinine Ratio 23.1 H (6-22) Glucose 109 H (70-99) mg/dL Calcium 9.2 (8.4-10.2) mg/dL Magnesium 2.3 (1.6-2.3) mg/dL Total Bilirubin 0.3 (0.2-1.3) mg/dL AST 29 (14-36) IU/L ALT 21 (<35) IU/L Alkaline Phosphatase 73 (38-126) U/L Total Creatine Kinase 79 (30-135) U/L Troponin I 0.013 < 0.012 (0.01-0.034) ng/mL NT-Pro-B Natriuret Pep 516 H (<450) pg/mL Total Protein 7.4 (6.3-8.2) g/dL Albumin 4.4 (3.5-5.0) g/dL Globulin 3.0 (1.7-4.1) g/dL Albumin/Globulin Ratio 1.5 (1.0-2.8) Lipase 102 (23-300) U/L [facility] Narrative Medical decision making narrative: The patient had 12 lead EKG with atrial paced rhythm with no acute changes patient had chest x-ray read by the radiologist as negative patient has CBC with normal limits chemistry within normal limits troponin was negative x2 and BNP was 516. At this point this does not appear to be cardiac type chest pain there are no association said it since it was sharp and reproducible. More likely it is musculoskeletal chest pain. I will send the patient home on a short course of prednisone she can follow up with her doctor in next 2-3 days differential diagnosis atypical chest pain angina ACS pneumonia pneumothorax Discharge Plan Departure Patient Disposition: Home Clinical Impression: Atypical chest pain Instructions: DI for Atypical Chest Pain Prescriptions: New prednisone 20 mg tablet 20 mg PO DAILY Qty: 5 0RF No Action aspirin [Adult Low Dose Aspirin] 81 mg tablet,delayed release (DR/EC) 81 mg PO DAILY [vitamin d] PO QDAY Qty: 0 ezetimibe 10 mg tablet 10 mg PO DAILY Qty: 90 2RF levothyroxine 75 mcg tablet 75 mcg PO DAILY Qty: 90 3RF magnesium 250 mg tablet 250 mg PO DAILY Emergen-C 1,000 mg powder effervescent in packet PO mecobalamin (vitamin B12) [B12 Active] 1,000 mcg tablet,chewable 1,000 mcg PO estradiol 0.01 % (0.1 mg/gram) cream 2 g vaginal .COMPLEX Qty: 42.5 5RF Rx Instructions: Use 1 gram twice a week, via applicator Referrals: Isabel Campbell DO [Primary Care Provider, Medical] - 3-5 days Stand Alone Forms: Patient Portal/API
[2025-07-28 19:28] LABS: NT-proBNP (BNP-Adult 18+) 516 pg/mL (<450); Troponin I 0.013 ng/mL (0.01-0.034)
--- NOTE | 2025-07-28 19:40 | W.PC.EDHO ---
Report received from MAICO Alcantar
[2025-07-28 21:45] LABS: Troponin I < 0.012 ng/mL (0.01-0.034)
== END 2025-07-28 23:04 | disposition home or self-care (01) ==
PROVIDERS: Emergency Provider Emergency Medicine; PCP Family Medicine
DX: R07.89 Other chest pain (principal)
CPT/HCPCS: 36415; 71045; 80053; 82550; 83690; 83735; 83880; 84484; 85025; 85610; 85730; 93005; 93010; 99283; 99284